=== PATIENT | male | born 1955 | race Caucasian/White ===

== ENCOUNTER 2018-04-20 10:23 | Inpatient (IN) | payer OTHER, MEDICAID ==
--- NOTE | 2018-04-20 10:49 | ED ---
General Adult HPI <Oh Kennedy - Last Filed: 04/20/18 14:38> - General Source: patient, RN notes reviewed Mode of arrival: ambulatory Limitations: no limitations <Pito Conroy - Last Filed: 04/20/18 14:45> - General Chief complaint: Urogenital Stated complaint: blood in urine Time Seen by Provider: 04/20/18 10:30 - History of Present Illness Initial comments: 62-year-old male presents to the emergency department for a chief complaint of dysuria 5 days. Patient states this started on . He states he has urinary urgency and sometimes does not like he can make it to the bathroom since . He states he is also going more frequently than normal. He states once he starts urinating he started to have pain during the end of his urination stream. Patient states he is small amount of blood in the urine as well. Patient states he has not been taking his water pills because of this. He does admit to feeling somewhat more short of breath. He denies chest pain. Patient has no other complaints at this time including shortness of breath, abdominal pain, nausea or vomiting, headache, or visual changes. (Pito Conroy) - Related Data Home Medications Medication Instructions Recorded Confirmed Allopurinol [Zyloprim] 300 mg PO QAM 05/12/17 04/20/18 Atenolol 100 mg PO QAM 05/12/17 04/20/18 Doxazosin Mesylate 1 mg PO HS 05/12/17 04/20/18 Furosemide [Lasix] 80 mg PO QAM 05/12/17 04/20/18 Levothyroxine Sodium [Levo-T] 300 mcg PO QAM 05/12/17 04/20/18 Simvastatin [Zocor] 40 mg PO HS 05/12/17 04/20/18 Spironolactone-Hctz 25-25Mg 1 tab PO QAM 05/12/17 04/20/18 [Aldactazide 25-25Mg] Amoxicillin 250 mg PO Q8H 04/20/18 04/20/18 Levothyroxine Sodium [Synthroid] 50 mcg PO DAILY 04/20/18 04/20/18 Tamsulosin HCl [Flomax] 0.4 mg PO DAILY 04/20/18 04/20/18 Allergies Allergy/AdvReac Type Severity Reaction Status Date / Time No Known Allergies Allergy Verified 04/20/18 11:23 Review of Systems ROS Other: All systems not noted in ROS Statement are negative. <Oh Kennedy - Last Filed: 04/20/18 14:38> ROS Other: All systems not noted in ROS Statement are negative. <Pito Conroy - Last Filed: 04/20/18 14:45> ROS Statement: Those systems with pertinent positive or pertinent negative responses have been documented in the HPI. Past Medical History Past Medical History: Hyperlipidemia, Hypertension, Sleep Apnea/CPAP/BIPAP, Thyroid Disorder History of Any Multi-Drug Resistant Organisms: None Reported Past Surgical History: Orthopedic Surgery Additional Past Surgical History / Comment(s): colonoscopy, had a pin in his elbow Past Anesthesia/Blood Transfusion Reactions: No Reported Reaction Past Psychological History: No Psychological Hx Reported Smoking Status: Never smoker - Past Family History Mother Family Medical History: Cancer <Pito Conroy P - Last Filed: 04/20/18 14:45> General Exam Limitations: no limitations General appearance: alert, in no apparent distress Head exam: Present: atraumatic, normocephalic, normal inspection Eye exam: Present: normal appearance, PERRL, EOMI. Absent: scleral icterus, conjunctival injection, periorbital swelling ENT exam: Present: normal exam, mucous membranes moist Neck exam: Present: normal inspection, full ROM. Absent: tenderness, meningismus, lymphadenopathy Respiratory exam: Present: normal lung sounds bilaterally. Absent: respiratory distress, wheezes, rales, rhonchi, stridor Cardiovascular Exam: Present: regular rate, normal rhythm, normal heart sounds. Absent: systolic murmur, diastolic murmur, rubs, gallop, clicks GI/Abdominal exam: Present: soft, normal bowel sounds. Absent: distended, tenderness, guarding, rebound, rigid Back exam: Absent: CVA tenderness (R), CVA tenderness (L) Neurological exam: Present: alert, oriented X3, CN II-XII intact <Pito Conroy P - Last Filed: 04/20/18 14:45> Vital Signs 04/20/18 04/20/18 10:25 11:42 Temperature 98.4 F Pulse Rate 69 61 Respiratory 18 18 Rate Blood Pressure 197/102 149/86 O2 Sat by Pulse 96 96 Oximetry EKG Findings - EKG Comments: EKG Findings:: EKG 11:26 shows atrial fibrillation with rate of 72, QRS duration 86, QTc 459, no evidence of ST elevation or depression. EKG 1136 atrial fibrillation, ventricular rate 70, QRS orthodoxy 84, QTc 464 <Pito Conroy - Last Filed: 04/20/18 14:45> Medical Decision Making - Lab Data Result diagrams: 04/20/18 11:10 04/20/18 11:10 <Oh Kennedy - Last Filed: 04/20/18 14:38> - Lab Data Result diagrams: 04/20/18 11:10 04/20/18 11:10 - EKG Data -: EKG Interpreted by Me (and Dr Kennedy) <Pito Conroy - Last Filed: 04/20/18 14:45> - Medical Decision Making Patient reevaluated by myself, Dr. Kennedy. Patient resting comfortably in bed. Patient does have some edema and some wheezing on lung sounds on exam. Patient updated on results and plan. Atrial fibrillation appears new. Case was discussed in detail with Dr. Anne, who will admit his patient. IV antibiotic 's will be started. I did review and agree with PA findings. This includes all diagnostic interpretations and treatment plan. (Oh Kennedy) 62-year-old male with a past medical history of hyperlipidemia, hypertension for a chief complaint of dysuria 5 days. Patient was started on amoxicillin 3 days ago without relief. Patient is also complaining of mild shortness of breath as he has not taken his 80 mg of daily Lasix for 5 days due to the pain with urination. Patient does not meet Sirs criteria. He is afebrile. He does have a positive urinary tract infection. He denies any significant flank pain. CMP and CBC are unremarkable. White count is within normal limits. Troponin is negative. EKGs do show an atrial fibrillation with a controlled rate of about 70. Patient is not anticoagulated and this is new onset A. fib. Patient will be admitted for outpatient treatment failure for urinary tract infection as well as new onset atrial fibrillation. He was started on heparin and given a dose of Lasix. Cardiology was consulted. (Pito Conroy) - Lab Data Lab Results 04/20/18 04/20/18 04/20/18 Range/Units 11:10 11:10 11:10 WBC 6.4 (3.8-10.6) k/uL RBC 4.08 L (4.30-5.90) m/uL Hgb 14.4 (13.0-17.5) gm/dL Hct 42.3 (39.0-53.0) % MCV 103.7 H (80.0-100.0) fL MCH 35.2 H (25.0-35.0) pg MCHC 33.9 (31.0-37.0) g/dL RDW 14.1 (11.5-15.5) % Plt Count 174 (150-450) k/uL Neutrophils % 73 % Lymphocytes % 14 % Monocytes % 9 % Eosinophils % 2 % Basophils % 0 % Neutrophils # 4.7 (1.3-7.7) k/uL Lymphocytes # 0.9 L (1.0-4.8) k/uL Monocytes # 0.6 (0-1.0) k/uL Eosinophils # 0.1 (0-0.7) k/uL Basophils # 0.0 (0-0.2) k/uL Macrocytosis Slight Sodium 139 (137-145) mmol/L Potassium 4.2 (3.5-5.1) mmol/L Chloride 104 (98-107) mmol/L Carbon Dioxide 28 (22-30) mmol/L Anion Gap 7 mmol/L BUN 15 (9-20) mg/dL Creatinine 0.76 (0.66-1.25) mg/dL Est GFR (CKD-EPI)AfAm >90 (>60 ml/min/1.73 sqM) Est GFR (CKD-EPI)NonAf >90 (>60 ml/min/1.73 sqM) Glucose 94 (74-99) mg/dL Calcium 8.5 (8.4-10.2) mg/dL Magnesium 1.8 (1.6-2.3) mg/dL Total Bilirubin 0.6 (0.2-1.3) mg/dL AST 26 (17-59) U/L ALT 34 (21-72) U/L Alkaline Phosphatase 49 (38-126) U/L Troponin I <0.012 (0.000-0.034) ng/mL NT-Pro-B Natriuret Pep pg/mL Total Protein 6.0 L (6.3-8.2) g/dL Albumin 3.2 L (3.5-5.0) g/dL Urine Color Urine Appearance (Clear) Urine pH (5.0-8.0) Ur Specific [place] (1.001-1.035) Urine Protein (Negative) Urine Glucose (UA) (Negative) Urine Ketones (Negative) Urine Blood (Negative) Urine Nitrite (Negative) Urine Bilirubin (Negative) Urine Urobilinogen (<2.0) mg/dL Ur Leukocyte Esterase (Negative) Urine RBC (0-5) /hpf Urine WBC (0-5) /hpf Urine WBC Clumps (None) /hpf Ur Squamous Epith Cells (0-4) /hpf Urine Bacteria (None) /hpf Urine Mucus (None) /hpf 04/20/18 04/20/18 Range/Units 11:10 12:05 WBC (3.8-10.6) k/uL RBC (4.30-5.90) m/uL Hgb (13.0-17.5) gm/dL Hct (39.0-53.0) % MCV (80.0-100.0) fL MCH (25.0-35.0) pg MCHC (31.0-37.0) g/dL RDW (11.5-15.5) % Plt Count (150-450) k/uL Neutrophils % % Lymphocytes % % Monocytes % % Eosinophils % % Basophils % % Neutrophils # (1.3-7.7) k/uL Lymphocytes # (1.0-4.8) k/uL Monocytes # (0-1.0) k/uL Eosinophils # (0-0.7) k/uL Basophils # (0-0.2) k/uL Macrocytosis Sodium (137-145) mmol/L Potassium (3.5-5.1) mmol/L Chloride (98-107) mmol/L Carbon Dioxide (22-30) mmol/L Anion Gap mmol/L BUN (9-20) mg/dL Creatinine (0.66-1.25) mg/dL Est GFR (CKD-EPI)AfAm (>60 ml/min/1.73 sqM) Est GFR (CKD-EPI)NonAf (>60 ml/min/1.73 sqM) Glucose (74-99) mg/dL Calcium (8.4-10.2) mg/dL Magnesium (1.6-2.3) mg/dL Total Bilirubin (0.2-1.3) mg/dL AST (17-59) U/L ALT (21-72) U/L Alkaline Phosphatase (38-126) U/L Troponin I (0.000-0.034) ng/mL NT-Pro-B Natriuret Pep 1210 pg/mL Total Protein (6.3-8.2) g/dL Albumin (3.5-5.0) g/dL Urine Color Yellow Urine Appearance Clear (Clear) Urine pH 7.5 (5.0-8.0) Ur Specific [place] 1.016 (1.001-1.035) Urine Protein 2+ H (Negative) Urine Glucose (UA) Negative (Negative) Urine Ketones Negative (Negative) Urine Blood Moderate H (Negative) Urine Nitrite Positive (Negative) Urine Bilirubin Negative (Negative) Urine Urobilinogen <2.0 (<2.0) mg/dL Ur Leukocyte Esterase Moderate H (Negative) Urine RBC 17 H (0-5) /hpf Urine WBC >182 H (0-5) /hpf Urine WBC Clumps Moderate H (None) /hpf Ur Squamous Epith Cells <1 (0-4) /hpf Urine Bacteria Occasional H (None) /hpf Urine Mucus Rare H (None) /hpf Disposition <Oh Kennedy - Last Filed: 04/20/18 14:38> Time of Disposition: 14:44 <Pito Conroy - Last Filed: 04/20/18 14:45> Clinical Impression: UTI (urinary tract infection), Failure of outpatient treatment, New onset atrial fibrillation Disposition: ADMITTED IP TO THIS [facility] Condition: Good Referrals: Ramone Anne MD [Primary Care Provider] - 1-2 days
[2018-04-20 11:30] LABS: Basophils % (A) 0 %; Eosinophils # (A) 0.1 k/uL (0-0.7); Eosinophils % (A) 2 %; HCT 42.3 % (39.0-53.0); HGB 14.4 gm/dL (13.0-17.5); Lymphocytes # (A) 0.9 k/uL (1.0-4.8); Lymphocytes % (A) 14 %; MCH 35.2 pg (25.0-35.0); MCHC 33.9 g/dL (31.0-37.0); MCV 103.7 fL (80.0-100.0); Macrocytosis Slight; Mean Platelet Volume 6.8; Monocytes # (A) 0.6 k/uL (0-1.0); Monocytes % (A) 9 %; Neutrophils # (A) 4.7 k/uL (1.3-7.7); Neutrophils % (A) 73 %; Platelet Count 174 k/uL (150-450); RBC 4.08 m/uL (4.30-5.90); RDW 14.1 % (11.5-15.5); WBC 6.4 k/uL (3.8-10.6)
[2018-04-20 11:37] LABS: ALT 34 U/L (21-72); AST 26 U/L (17-59); Albumin 3.2 g/dL (3.5-5.0); Alkaline Phosphatase 49 U/L (38-126); Anion Gap 7 mmol/L; Blood Urea Nitrogen 15 mg/dL (9-20); Calcium 8.5 mg/dL (8.4-10.2); Carbon Dioxide 28 mmol/L (22-30); Chloride 104 mmol/L (98-107); Glucose 94 mg/dL (74-99); Magnesium 1.8 mg/dL (1.6-2.3); Potassium 4.2 mmol/L (3.5-5.1); Sodium 139 mmol/L (137-145); Total Bilirubin 0.6 mg/dL (0.2-1.3)
--- NOTE | 2018-04-20 12:05 | XR ---
EXAMINATION TYPE: XR chest 2V DATE OF EXAM: 04/20/2018 COMPARISON: None HISTORY: 62-year-old male with chest pain TECHNIQUE: PA and lateral views FINDINGS: Heart borderline enlarged. Mild elongation thoracic aorta. Mild interstitial prominence. Strandy left basilar atelectasis. No sizable pleural effusion. IMPRESSION: Borderline cardiomegaly. Interstitial changes have a chronic appearance. Correlate to exclude mild pu lmonary vascular congestion.
[2018-04-20 12:48] LABS: Appearance,Urine Clear (Clear); Bacteria,Urine Occasional /hpf; Bilirubin,Urine Negative (Negative); Blood,Urine Moderate (Negative); Color,Urine Yellow; Glucose,Urine (UA) Negative (Negative); Ketones,Urine Negative (Negative); Leukocyte Esterase,Urine Moderate (Negative); Mucus,Urine Rare /hpf; Nitrite,Urine Positive (Negative); PH, Urine 7.5 (5.0-8.0); Protein,Urine 2+ (Negative); RBC,Urine 17 /hpf (0-5); Specific Gravity,Urine 1.016 (1.001-1.035); Squamous Epithelial Cell,Urine <1 /hpf (0-4); Urobilinogen,Urine <2.0 mg/dL (<2.0); WBC,Urine >182 /hpf (0-5)
[2018-04-20] MEDS ORDERED: cefTRIAXone 2,000 MG in SODIUM CHLORIDE 0.9% 100 ML IVPB STA (12:54)
[2018-04-20] MEDS ORDERED: HEPARIN SODIUM,PORCINE 5,000 UNIT/ML 1 ML VIAL IV ONE (14:29)
[2018-04-20] MEDS ORDERED: HEPARIN SOD,PORK IN 0.45% NACL 25,000 UNIT in 0.45% NACL 1 500ML.BAG IV SCH (14:30)
[2018-04-20] MEDS ORDERED: NALOXONE 0.4 MG/ML 1 ML VIAL IV PRN (14:31)
[2018-04-20] MEDS ORDERED: FUROSEMIDE 10 MG/ML 4 ML VIAL IV STA (14:39)
[2018-04-20 14:45] LABS: INR 1.1 (<1.2); Partial Thromboplastin Time 23.5 sec (22.0-30.0); Prothrombin Time 10.3 sec (9.0-12.0)
[2018-04-20] MEDS ORDERED: SODIUM CHLORIDE 0.9% 1,000 ML IV SCH (14:45)
[2018-04-20] MEDS ORDERED: HEPARIN SODIUM,PORCINE 5,000 UNIT/ML 1 ML VIAL IV PRN (22:03)
[2018-04-21 04:49] VITALS: RESP 18
--- NOTE | 2018-04-21 09:19 | P.CRDCN ---
History of Present Illness Consult date: 04/21/18 Requesting physician: Ramone Anne Consult reason: atrial fibrillation Chief complaint: Urinary frequency and dysuria History of present illness: This is a pleasant 62-year-old gentleman with history of hypertension , hyperlipidemia, sleep apnea, nonsmoker, nondiabetic, obesity, hypothyroidism, who presented to the hospital with symptoms of dysuria and urinary frequency. He was found to have a urinary tract infection and was initiated on antibiotics. EKG performed on arrival here showed atrial fibrillation with a controlled ventricular response. According to the patient, he had never been told in the past to have an irregular heartbeat. He does have a yearly physical performed with Dr. Cristina in his primary care doctor and states that he had an EKG performed in June of this year. Chest x-ray showed borderline cardiomegaly, interstitial changes, mild pulmonary vascular congestion. EKG showed atrial fibrillation with a controlled ventricular response and occasional PVC. White blood cell count 6.4, hemoglobin 14.4, platelet count 174. Sodium 139, potassium 4.2, BUN 15, creatinine 0.7. Troponin 0.012, BNP level 1210. At the time of my examination this morning, patient feels well, he states that his dysuria is improved. He denies any recent palpitations, no dizziness or lightheadedness. Mild occasional shortness of breath. Past Medical History Past Medical History: Hyperlipidemia, Hypertension, Sleep Apnea/CPAP/BIPAP, Thyroid Disorder History of Any Multi-Drug Resistant Organisms: None Reported Past Surgical History: Orthopedic Surgery Additional Past Surgical History / Comment(s): colonoscopy, had a pin in his elbow Past Anesthesia/Blood Transfusion Reactions: No Reported Reaction Additional Past Anesthesia/Blood Transfusion Reaction / Comment(s): "i've never had a blood transfusion" Smoking Status: Never smoker - Past Family History Mother Family Medical History: AFIB, Cancer Father Additional Family Medical History / Comment(s): ALS Medications and Allergies Home Medications Medication Instructions Recorded Confirmed Type Allopurinol [Zyloprim] 300 mg PO QAM 05/12/17 04/20/18 History Atenolol 100 mg PO QAM 05/12/17 04/20/18 History Doxazosin Mesylate 1 mg PO HS 05/12/17 04/20/18 History Furosemide [Lasix] 80 mg PO QAM 05/12/17 04/20/18 History Levothyroxine Sodium [Levo-T] 300 mcg PO QAM 05/12/17 04/20/18 History Simvastatin [Zocor] 40 mg PO HS 05/12/17 04/20/18 History Spironolactone-Hctz 25-25Mg 1 tab PO QAM 05/12/17 04/20/18 History [Aldactazide 25-25Mg] Amoxicillin 250 mg PO Q8H 04/20/18 04/20/18 History Levothyroxine Sodium [Synthroid] 50 mcg PO DAILY 04/20/18 04/20/18 History Tamsulosin HCl [Flomax] 0.4 mg PO DAILY 04/20/18 04/20/18 History Allergies Allergy/AdvReac Type Severity Reaction Status Date / Time No Known Allergies Allergy Verified 04/20/18 11:23 Physical Exam Vitals: Vital Signs Temp Pulse Pulse Resp BP BP Pulse Ox 04/21/18 07:42 96 04/21/18 04:00 98 F 65 18 166/90 96 04/21/18 03:24 20 04/20/18 23:37 97.8 F 61 20 160/91 94 L 04/20/18 19:38 97.9 F 66 20 132/77 93 L 04/20/18 18:03 64 18 04/20/18 17:55 98.2 F 64 18 150/106 93 L 04/20/18 17:29 69 18 125/94 95 04/20/18 11:42 61 18 149/86 96 04/20/18 10:25 98.4 F 69 18 197/102 96 Intake and Output 04/20/18 04/21/18 04/21/18 22:59 06:59 14:59 Intake Total 128.759 293.456 Balance 128.759 293.456 Intake: IV 80 Heparin Sod,Pork in 0.45% 80 NaCl 25,000 unit In 0.45 % NaCl 1 500ml.bag @ 5 UNITS/KG/HR 19.86 mls/hr IV .Q24H [facility] [place] Rx#: [id number] Intake, IV Titration 128.759 213.456 Amount Heparin Sod,Pork in 0.45% 128.759 213.456 NaCl 25,000 unit In 0.45 % NaCl 1 500ml.bag @ 5 UNITS/KG/HR 19.86 mls/hr IV .Q24H [facility] [place] Rx#: [id number] Other: Voiding Method Toilet Toilet # Voids 4 Weight 177.8 kg PHYSICAL EXAMINATION: GENERAL: 62-year-old gentleman in no acute distress at the time of my examination HEENT: Head is atraumatic, normocephalic. Pupils equal, round. Sclera anicteric. Conjunctiva are clear. Mucous membranes of the mouth are moist. Neck is supple. There is no elevated jugular venous pressure. No carotid bruit is heard. HEART EXAMINATION: S1 and S2 irregularly irregular CHEST EXAMINATION: Lungs are clear to auscultation and precussion. No chest wall tenderness is noted on palpation or with deep breathing. ABDOMEN: Soft, obese, nontender. Bowel sounds are heard. No organomegaly noted. EXTREMITIES: 2+ peripheral pulses with trace evidence of peripheral edema and no calf tenderness noted. Bilateral PÉREZ hose in place. NEUROLOGIC patient is awake, alert and oriented 3 . . Results 04/20/18 11:10 04/20/18 11:10 Cardiac Enzymes 04/20/18 04/20/18 Range/Units 11:10 11:10 AST 26 (17-59) U/L Troponin I <0.012 (0.000-0.034) ng/mL Coagulation 04/20/18 04/20/18 04/21/18 Range/Units 14:06 21:15 04:11 PT 10.3 (9.0-12.0) sec APTT 23.5 24.3 27.7 (22.0-30.0) sec CBC 04/20/18 Range/Units 11:10 WBC 6.4 (3.8-10.6) k/uL RBC 4.08 L (4.30-5.90) m/uL Hgb 14.4 (13.0-17.5) gm/dL Hct 42.3 (39.0-53.0) % Plt Count 174 (150-450) k/uL Comprehensive Metabolic Panel 04/20/18 Range/Units 11:10 Sodium 139 (137-145) mmol/L Potassium 4.2 (3.5-5.1) mmol/L Chloride 104 (98-107) mmol/L Carbon Dioxide 28 (22-30) mmol/L BUN 15 (9-20) mg/dL Creatinine 0.76 (0.66-1.25) mg/dL Glucose 94 (74-99) mg/dL Calcium 8.5 (8.4-10.2) mg/dL AST 26 (17-59) U/L ALT 34 (21-72) U/L Alkaline Phosphatase 49 (38-126) U/L Total Protein 6.0 L (6.3-8.2) g/dL Albumin 3.2 L (3.5-5.0) g/dL Current Medications Generic Name Dose Route Start Last Admin Trade Name Freq PRN Reason Stop Dose Admin Heparin Sodium (Porcine) 0 unit 04/20/18 22:03 04/20/18 22:13 Heparin IV 4,000 unit PER PROTOCOL PRN Administration Low PTT Protocol Heparin Sodium/Sodium Chloride 500 mls @ 19.86 mls/hr 04/20/18 14:30 05:04 25,000 unit/ Sodium Chloride IV 11 units/kg/hr .Q24H [facility] 43.7 mls/hr Titration Protocol 5 UNITS/KG/HR Sodium Chloride 1,000 mls @ 50 mls/hr 04/20/18 14:45 04/20/18 15:37 Saline 0.9% IV 50 mls/hr .Q20H [facility] Administration Ceftriaxone Sodium 1,000 mg/ 50 mls @ 100 mls/hr 04/21/18 00:00 04/20/18 22: 13 Sodium Chloride IVPB 100 mls/hr Q12H [facility] Administration Naloxone HCl 0.2 mg 04/20/18 14:31 Narcan IV Q2M PRN Opioid Reversal Intake and Output 04/20/18 04/21/18 04/21/18 22:59 06:59 14:59 Intake Total 128.759 293.456 Balance 128.759 293.456 Intake: IV 80 Heparin Sod,Pork in 0.45% 80 NaCl 25,000 unit In 0.45 % NaCl 1 500ml.bag @ 5 UNITS/KG/HR 19.86 mls/hr IV .Q24H [facility] Rx#: [id number] Intake, IV Titration 128.759 213.456 Amount Heparin Sod,Pork in 0.45% 128.759 213.456 NaCl 25,000 unit In 0.45 % NaCl 1 500ml.bag @ 5 UNITS/KG/HR 19.86 mls/hr IV .Q24H [facility] [place] Rx#: [id number] Other: Voiding Method Toilet Toilet # Voids 4 Weight 177.8 kg 04/20/18 11:10 04/20/18 11:10 EKG Interpretations (text) EKG shows atrial fibrillation with controlled ventricular response and occasional PVC. Assessment and Plan Plan: Assessment and plan #1 atrial fibrillation with controlled ventricular response, appears to be of new onset. Paroxysmal. #2 hypertension #3 UTI, on antibiotics #4 hyperlipidemia #5 obesity #6 sleep apnea #7 hypothyroidism #8 mild congestive cardiac failure, LV function unknown. Plan We will obtain an echocardiogram with Doppler study, check a TSH level. Patient has been educated regarding the need for anticoagulation for stroke prevention. We'll discontinue the IV heparin and start the patient on Eliquis. Patient was given one dose of IV Lasix. We will decrease IV fluids to KVO. DNP note has been reviewed, I agree with a documented findings and plan of care. Patient was seen and examined.
[2018-04-21] MEDS: APIXABAN 5 MG TAB PO SCH ×2 (09:56→20:23)
[2018-04-21] MEDS: SODIUM CHLORIDE 0.9% 500 ML 500 ML IV SCH (09:57)
[2018-04-21 12:00] LABS: Glucose,Whole Blood 324 mg/dL (75-99)
--- NOTE | 2018-04-21 14:46 | HP ---
HISTORY AND PHYSICAL CHIEF COMPLAINT: Inability to void and dysuria. HISTORY OF PRESENT ILLNESS: This is the first known admission for this 62-year-old white male who has a history of hypertension and obesity. He was in the office on 04/18 stating he could not urinate. He reported that his urine would "just shut off." He denied dysuria, fever, chills, etc. At that time, urine was obtained and he was set up for post void residual. However, he continued to have difficulty and came to the emergency room where he was admitted. He is found to have UTI. He has had no history of renal disease, obstructive uropathy, stones, etc. He has not passed any blood clots. REVIEW OF SYSTEMS: He has had no headaches, neurologic problems, difficulty with vision, hearing, shortness of breath, cough, hemoptysis, chest pain, palpitations, angina, infarctions, orthopnea, PND, abdominal pain, nausea, vomiting, hematemesis, melena, hematochezia, colitis, diverticulosis, diverticulitis, hemorrhoids, jaundice, hepatitis, cancers, hematuria, frequency, renal failure, etc, other than that already mentioned. Past medical history, family history, personal and social histories reveal he is not allergic to any medications. MEDICATIONS: 1. He is on atenolol 100 mg once a day. 2. Levothyroxine 0.3 mg a day. 3. Simvastatin 20 mg at bedtime. 4. Dyazide 25/25 once a day. 5. Furosemide 80 mg once a day. 6. Allopurinol 300 mg once a day. 7. Doxazosin 1 mg at bedtime. 8. Enalapril 20 mg twice a day. 9. Naprosyn 500 twice a day. 10.Vitamin D 50,000 units a month. 11.Aspirin 81 mg. 12.He uses CPAP machine for sleep apnea. Remainder of the history is unremarkable. He has never smoked. PHYSICAL EXAM: BMI is 51.6 with a weight of 438 pounds and a height of 6, 5-1/4. Blood pressure 128/78 with pulse of 74 and regular, respirations of 20 and he is afebrile. GENERAL: He appeared to be overweight and in no acute distress. Skin color was normal, skin is warm and dry. Lymph nodes are not enlarged. Head, ears, eyes, nose, mouth, and throat were normal. Neck veins are not distended. Thyroid is not enlarged and the chest is clear. Cardiac exam demonstrates sinus rhythm and no murmurs or extra sounds. The abdomen is protuberant, soft, and nontender. Extremities normal, neurologically he is intact. IMPRESSION: 1. Difficulty urinating. 2. Hematuria. 3. Hypertension. 4. Obesity. PLAN: 1. Bed rest. 2. IV fluids. 3. Urinary culture. 4. IV antibiotics. 5. A postvoid residual. 6. Looks as though he has atrial fibrillation and his EKGs in the office will be reviewed. MMODL / IJN: [id number] /
--- NOTE | 2018-04-21 14:46 | PN ---
PROGRESS NOTE CHIEF COMPLAINT: Difficulty urinating and hematuria with atrial fibrillation. HISTORY OF PRESENT ILLNESS: This gentleman is doing well. He has had no fever, chills, pain, etc. He is urinating. He has had no chest pain, shortness of breath, etc. He is in atrial fibrillation. His EKGs in the office was reviewed and he was in sinus rhythm until July of this year where he had an EKG which demonstrated some P waves, but then some beats and appeared he was in atrial fibrillation. PHYSICAL EXAM: Chest is clear. Cardiac exam is normal. Abdomen is soft, nontender. IMPRESSION: 1. Difficulty urinating. 2. Urinary tract infection. 3. Rule out obstructive uropathy. 4. Hypertension. 5. Atrial fibrillation. PLAN: Continue workup and order for both postvoid residual and PSA. MMODL / IJN: [id number] /
[2018-04-21] MEDS: SPIRONOLACTONE-HCTZ 25-25MG 1 EACH TAB PO SCH (20:46)
[2018-04-21] MEDS ORDERED: DOXAZOSIN 1 MG TAB PO SCH (21:00)
[2018-04-21] MEDS ORDERED: ATORVASTATIN 20 MG TAB PO SCH (21:00)
[2018-04-21] MEDS: ATENOLOL 50 MG TAB PO SCH (21:27)
[2018-04-21] MEDS: AMOXICILLIN 250 MG CAP PO SCH (21:35)
[2018-04-22] MEDS ORDERED: LEVOTHYROXINE 50 MCG TAB PO SCH (06:30)
[2018-04-22] MEDS ORDERED: LEVOTHYROXINE 100 MCG TAB PO SCH (06:30)
[2018-04-22 08:44] VITALS: TEMP 98.2
[2018-04-22] MEDS ORDERED: TAMSULOSIN 0.4 MG CAP.ER.24H PO SCH (09:00)
[2018-04-22] MEDS ORDERED: FUROSEMIDE 80 MG TAB PO SCH (09:00)
[2018-04-22] MEDS ORDERED: ALLOPURINOL 300 MG TAB PO SCH (09:00)
[2018-04-22] MEDS ORDERED: LISINOPRIL 20 MG TAB PO SCH (10:00)
[2018-04-22] MEDS: AMOXICILLIN 250 MG CAP PO SCH (10:24)
[2018-04-22] MEDS: ATENOLOL 50 MG TAB PO SCH (10:24)
[2018-04-22] MEDS: APIXABAN 5 MG TAB PO SCH (10:24)
[2018-04-22] MEDS: SPIRONOLACTONE-HCTZ 25-25MG 1 EACH TAB PO SCH (10:25)
--- NOTE | 2018-04-22 12:29 | P.PN ---
Subjective Progress Note Date: 04/22/18 This is a pleasant 62-year-old gentleman with history of hypertension , hyperlipidemia, sleep apnea, nonsmoker, nondiabetic, obesity, hypothyroidism, who presented to the hospital with symptoms of dysuria and urinary frequency. He was found to have a urinary tract infection and was initiated on antibiotics. EKG performed on arrival here showed atrial fibrillation with a controlled ventricular response. According to the patient, he had never been told in the past to have an irregular heartbeat. He does have a yearly physical performed with Dr. Cristina in his primary care doctor and states that he had an EKG performed in June of this year. Chest x-ray showed borderline cardiomegaly, interstitial changes, mild pulmonary vascular congestion. EKG showed atrial fibrillation with a controlled ventricular response and occasional PVC. White blood cell count 6.4, hemoglobin 14.4, platelet count 174. Sodium 139, potassium 4.2, BUN 15, creatinine 0.7. Troponin 0.012, BNP level 1210. At the time of my examination this morning, patient feels well, he states that his dysuria is improved. He denies any recent palpitations, no dizziness or lightheadedness. Mild occasional shortness of breath. 04/22/2018 Patient was seen and examined this morning, continues to be in atrial fibrillation rate under adequate control. He is anticoagulated. He denies any further dysuria. Echocardiogram with Doppler study was reviewed and revealed a normal left ventricular systolic function. Blood pressure this morning 155/80. Heart rate in the low 50s. Objective - Vital Signs Vital signs: Vital Signs Temp 98.2 F 04/22/18 08:40 Pulse 48 L 04/22/18 08:40 Resp 18 04/22/18 08:40 BP 168/94 04/22/18 08:40 Pulse Ox 97 04/22/18 08:40 Intake & Output 04/21/18 04/22/18 04/22/18 18:59 06:59 18:59 Intake Total 462 240 Balance 462 240 Weight 198.3 kg Intake: Oral 462 240 Other: Voiding Method Toilet Toilet Toilet # Voids 1 2 1 - Exam PHYSICAL EXAMINATION: GENERAL: 62-year-old gentleman in no acute distress at the time of my examination HEENT: Head is atraumatic, normocephalic. Pupils equal, round. Sclera anicteric. Conjunctiva are clear. Mucous membranes of the mouth are moist. Neck is supple. There is no elevated jugular venous pressure. No carotid bruit is heard. HEART EXAMINATION: S1 and S2 irregularly irregular CHEST EXAMINATION: Lungs are clear to auscultation and precussion. No chest wall tenderness is noted on palpation or with deep breathing. ABDOMEN: Soft, obese, nontender. Bowel sounds are heard. No organomegaly noted. EXTREMITIES: 2+ peripheral pulses with trace evidence of peripheral edema and no calf tenderness noted. Bilateral PÉREZ hose in place. NEUROLOGIC patient is awake, alert and oriented 3 . - Labs CBC & Chem 7: 04/20/18 11:10 04/20/18 11:10 Labs: Microbiology - Last 24 Hours (Table) 04/20/18 12:05 Urine Culture - Final Urine,Voided Escherichia coli 04/20/18 11:10 Blood Culture - Preliminary Blood No Growth after 24 hours Assessment and Plan Plan: Assessment and plan #1 atrial fibrillation with controlled ventricular response, appears to be of new onset. Paroxysmal. #2 hypertension #3 UTI, on antibiotics #4 hyperlipidemia #5 obesity #6 sleep apnea #7 hypothyroidism #8 mild congestive cardiac failure, LV function unknown. Plan From cardiology's perspective, patient may be able to be discharged home today. We will continue current anticoagulation as well as beta david. We will resume his ANKIT inhibitor which she was taking at home previously for hypertension. Follow-up appointment in the office post discharge. DNP note has been reviewed, I agree with a documented findings and plan of care. Patient was seen and examined.
[2018-04-22] MEDS: SODIUM CHLORIDE 0.9% 500 ML 500 ML IV SCH (13:09)
--- NOTE | 2018-04-22 13:21 | ECHOF ---
Referral Reason:afib MEASUREMENTS -------- HEIGHT: 198.1 cm WEIGHT: 177.4 kg BP: 166/90 RVIDd: 4.0 cm (< 3.3) IVSd: 1.5 cm (0.6 - 1.1) LVIDd: 5.7 cm (3.9 - 5.3) LVPWd: 1.5 cm (0.6 - 1.1) IVSs: 1.5 cm LVIDs: 4.4 cm LVPWs: 1.5 cm LAESV Index (A-L): 69.67 ml/m Ao Diam: 3.6 cm (2.0 - 3.7) AV Cusp: 2.1 cm (1.5 - 2.6) LA Diam: 4.8 cm (2.7 - 3.8) EPSS: 0.8 cm MV E Pankaj: 1.18 m/s MV DecT: 211 ms MV A Pankaj: 0.00 m/s MV E/A Ratio: 326.85 RAP: 5.00 mmHg RVSP: 39.17 mmHg MV EF SLOPE: 116.20 mm/s (70 - 150) MV EXCURSION: 2.12 cm (> 18.000) FINDINGS -------- Atrial fibrillation. This was a technically adequate study. The left ventricular size is normal. There is moderate concentric left ventricular hypertrophy. O verall left ventricular systolic function is low-normal with, an EF between 50 - 55 %. The right ventricle is moderately enlarged. LA is severely dilated >40 ml/m2 The right atrium is markedly enlarged. Aortic valve is trileaflet and is mildly thickened. There is no evidence of aortic regurgitation. There is no evidence of aortic stenosis. The mitral valve leaflets are mildly thickened. Rzlc-oe-ewzgfnuw mitral regurgitation is present. Ojvj-zv-kcjqixoz tricuspid regurgitation present. There is mild pulmonary hypertension. The right ventricular systolic pressure, as measured by Doppler, is 39.17mmHg. Trace/mild (physiologic) pulmonic regurgitation. The aortic root size is normal. IVC Not well visulized. There is no pericardial effusion. CONCLUSIONS -------- 1. Atrial fibrillation. 2. This was a technically adequate study. 3. The left ventricular size is normal. 4. There is moderate concentric left ventricular hypertrophy. 5. Overall left ventricular systolic function is low-normal with, an EF between 50 - 55 %. 6. The right ventricle is moderately enlarged. 7. LA is severely dilated >40 ml/m2 8. The right atrium is markedly enlarged. 9. Aortic valve is trileaflet and is mildly thickened. 10. The mitral valve leaflets are mildly thickened. 11. Ccei-no-ybwlpbdt mitral regurgitation is present. 12. Rktq-tb-rswbuntj tricuspid regurgitation present. 13. There is mild pulmonary hypertension. 14. The right ventricular systolic pressure, as measured by Doppler, is 39.17mmHg. 15. Trace/mild (physiologic) pulmonic regurgitation. 16. The aortic root size is normal. 17. IVC Not well visulized. 18. There is no pericardial effusion. ANALYTICS ASSOCIATE: Renato English RDCS
[2018-04-22 13:22] VITALS: BP 149/92; PULSE 50
--- NOTE | 2018-04-25 10:29 | DS ---
DISCHARGE SUMMARY CHIEF COMPLAINT: Urinary retention. HISTORY OF PRESENT ILLNESS AND PHYSICAL EXAM: Details of this man's history and physical can be found in the initial workup. LABORATORY STUDIES: While he was in the hospital he had laboratory studies, details of which can be found in the laboratory section of his chart. COURSE IN THE HOSPITAL: After admission, he was placed on bedrest, started on intravenous fluids and treated for his urinary tract infection. He was also found to be in atrial fibrillation and he was seen by Cardiology. He was started on anticoagulation. He is doing well and urinating freely and it was felt that his urinary symptoms were largely due to infection. It was felt that he could be discharged home and be followed up in the office in several days. He will be maintained on antibiotics and will go home on apixaban . FINAL DIAGNOSES: 1. Urinary tract infection. 2. Urinary retention. 3. Atrial fibrillation. 4. Hypertension. OPERATIONS: None. CONSULTATIONS: Cardiology, He is improved. MMANAISL / SHARITAN: [id number] /
== END 2018-04-22 15:00 | disposition home or self-care (01) | DRG 690 ==
LOC: EC 10:23 → 3SCARD 14:39
PROVIDERS: ADMIT Family Medicine; ATTEND Family Medicine
DX: N39.0 Urinary tract infection, site not specified (principal); Z68.43 Body mass index [BMI] 50.0-59.9, adult; E03.9 Hypothyroidism, unspecified; E66.9 Obesity, unspecified; E78.5 Hyperlipidemia, unspecified; G47.30 Sleep apnea, unspecified; I11.0 Hypertensive heart disease with heart failure; I48.0 Paroxysmal atrial fibrillation; I49.3 Ventricular premature depolarization; I50.9 Heart failure, unspecified; R33.9 Retention of urine, unspecified; Z79.890 Hormone replacement therapy; Z79.899 Other long term (current) drug therapy; Z79.82 Long term (current) use of aspirin; R31.9 Hematuria, unspecified; Z80.9 Family history of malignant neoplasm, unspecified; Z82.49 Family history of ischemic heart disease and other diseases of the circulatory system; Z82.0 Family history of epilepsy and other diseases of the nervous system
CPT/HCPCS: 36415; 51798; 71046; 80053; 81001; 83735; 83880; 84443; 84484; 85025; 85610; 85730; 87040; 87077; 87086; 87186; 93005; 93306; 94760; 96365; 96366; 96367; 96375; 96376; 99284

== ENCOUNTER → 2018-06-10 | Outpatient (CLI) | payer OTHER, MEDICAID ==
[2018-06-10 10:52] LABS: Anion Gap 6 mmol/L; Blood Urea Nitrogen 23 mg/dL (9-20); Carbon Dioxide 31 mmol/L (22-30); Chloride 101 mmol/L (98-107); Potassium 4.1 mmol/L (3.5-5.1); Sodium 138 mmol/L (137-145)
[2018-06-10 11:01] LABS: HCT 39.9 % (39.0-53.0); HGB 13.3 gm/dL (13.0-17.5); MCH 33.8 pg (25.0-35.0); MCHC 33.3 g/dL (31.0-37.0); MCV 101.7 fL (80.0-100.0); Macrocytosis Slight; Mean Platelet Volume 7.6; Platelet Count 140 k/uL (150-450); RBC 3.93 m/uL (4.30-5.90); RDW 14.5 % (11.5-15.5)
== END | disposition home or self-care (01) ==
LOC: LABPAT 10:27
PROVIDERS: ATTEND Internal Medicine Cardiovascular Disease
DX: Z01.812 Encounter for preprocedural laboratory examination (principal); I48.1 Persistent atrial fibrillation
CPT/HCPCS: 80051; 82565; 84520; 85027

== ENCOUNTER → 2018-06-17 | Day surgery (SDC) | payer OTHER, MEDICAID ==
[2018-06-15 15:44] VITALS: BMI 49.6
[~2018-06-17] MED LIST: ALLOPURINOL 300 MG TAB PO SCH; FUROSEMIDE 40 MG TAB PO SCH; LACTATED RINGERS 1,000 ML IV SCH; LEVOTHYROXINE SODIUM 350 MCG PO SCH; LIDOCAINE 1% INJ 10MG/ML (20 ML MDV) ONE; MINOXIDIL 10 MG TAB PO SCH; NON-FORMULARY DRUG (Enalapril 20 MG) PO SCH; PROPOFOL 10 MG/ML 20 ML VIAL IV ONE; RIVAROXABAN 20 MG TAB PO SCH; SODIUM CHLORIDE 0.9% 1,000 ML IV SCH; SODIUM CHLORIDE 0.9% 500 ML 500 ML IV ONE; SPIRONOLACTONE-HCTZ 25-25MG 1 EACH TAB PO SCH; TAMSULOSIN 0.4 MG CAP.ER.24H PO SCH
[2018-06-17 11:14] VITALS: TEMP 97.9
[2018-06-17] MEDS: BENZOCAINE SPRAY 1 CAN TOPICAL ONE ×2 (11:46→11:48)
--- NOTE | 2018-06-17 12:58 | ECHOT ---
TRANSESOPHAGEAL ECHOCARDIOGRAM TRANSESOPHAGEAL ECHO SECONDARY TO CARDIOVERSION: INDICATION: Chronic atrial fibrillation. PROCEDURE NOTE: After obtaining informed consent, transesophageal echocardiogram was performed in left lateral position using an Omni plane probe. The patient was anesthetized by the behavior management specialist. Following initial intubation and after obtaining some of the images, we had to pull the tube out became he became hypoxic. Patient was bagged and we reintubated him again. The procedure was completed without any problems. FINDINGS: 1. There is no intracardiac thrombus within the left atrial appendage, left atrium, right atrium, right ventricular or left ventricle. 2. Left ventricle has normal size and systolic function. 3. Right atrium and right ventricle appear enlarged. 4. Left atrium appears mildly enlarged. 5. Interatrial septum, there is no evidence of pelt-tq-syawd shunt by color-flow Doppler or hesge-ho-xfuk shunt by agitated saline contrast study. 6. Mitral valve is anatomically normal. There is mild central mitral regurgitation noted. Tricuspid valve shows moderate tricuspid regurgitation. Aortic valve is a 3- leaflet valve. There is no evidence of aortic stenosis or regurgitation. CONCLUSION: 1. No intracardiac thrombus. Enlarged right atrium and right ventricle. 2. Mild mitral regurgitation. CARDIOVERSION NOTE: INDICATION: Chronic atrial fibrillation. Patient underwent cardioversion after making sure that there is no intracardiac thrombus within the transesophageal echo and adequately anticoagulating with Xarelto. Patient was anesthetized by the behavior management specialist. He initially received 300 joules of synchronized DC current, remained in AFib. We did a second cardioversion at 360 joules, following which he converted to sinus rhythm. On discharge, patient will continue the Xarelto, but I am going to hold the atenolol as he may become bradycardic. He will follow up with my associate, Dr. Marya Aponte. MMODL / IJN: [id number] /
[2018-06-17 13:17] VITALS: RESP 18
[2018-06-17 13:18] VITALS: BP 110/60
[2018-06-17 13:33] VITALS: PULSE 52
== END ==
LOC: CATHCVL 10:23
PROVIDERS: ATTEND Internal Medicine Cardiovascular Disease
DX: I48.2 Chronic atrial fibrillation (principal); I34.0 Nonrheumatic mitral (valve) insufficiency; I11.9 Hypertensive heart disease without heart failure; R00.1 Bradycardia, unspecified; I44.0 Atrioventricular block, first degree; I45.10 Unspecified right bundle-branch block; E78.5 Hyperlipidemia, unspecified; G47.33 Obstructive sleep apnea (adult) (pediatric); E07.9 Disorder of thyroid, unspecified; Z79.01 Long term (current) use of anticoagulants; Z79.890 Hormone replacement therapy; Z79.899 Other long term (current) drug therapy
CPT/HCPCS: 93312; 93320; 93325; 92960; J2001; J2704; 93005

== ENCOUNTER 2018-11-13 20:05 | Inpatient (IN) | payer OTHER, MEDICAID ==
[2018-11-13] MEDS ORDERED: PIPERACILLIN-TAZOBACTAM 3.375 GM in SODIUM CHLORIDE 0.9% 100 ML IVPB STA (20:32)
[2018-11-13 21:25] LABS: Basophils % (A) 0 %; Eosinophils % (A) 1 %; HCT 35.3 % (39.0-53.0); HGB 11.3 gm/dL (13.0-17.5); Lymphocytes # (A) 0.9 k/uL (1.0-4.8); Lymphocytes % (A) 11 %; MCH 34.2 pg (25.0-35.0); MCV 107.1 fL (80.0-100.0); Macrocytosis Moderate; Mean Platelet Volume 7.6; Monocytes # (A) 0.4 k/uL (0-1.0); Monocytes % (A) 4 %; Neutrophils # (A) 6.8 k/uL (1.3-7.7); Neutrophils % (A) 81 %; Platelet Count 183 k/uL (150-450); RDW 14.7 % (11.5-15.5); WBC 8.4 k/uL (3.8-10.6)
[2018-11-13 21:34] LABS: Calcium 8.1 mg/dL (8.4-10.2); Potassium 4.1 mmol/L (3.5-5.1); Total Bilirubin 1.2 mg/dL (0.2-1.3); Total Protein 5.9 g/dL (6.3-8.2)
[2018-11-13] MEDS ORDERED: MORPHINE SULFATE 4 MG/ML SYRINGE IV PRN (22:56)
[2018-11-13] MEDS ORDERED: ONDANSETRON 4 MG/2 ML VIAL IVP PRN (22:56)
[2018-11-13] MEDS ORDERED: NALOXONE 0.4 MG/ML 1 ML VIAL IV PRN (22:56)
[2018-11-13] MEDS ORDERED: SODIUM CHLORIDE 0.9% 1,000 ML IV SCH ×2 (23:00→23:45)
--- NOTE | 2018-11-13 23:01 | ED ---
Abdominal Pain HPI - General Source: patient Mode of arrival: ambulatory Limitations: no limitations <Lorraine Chen - Last Filed: 11/14/18 00:46> <Jennifer Richey - Last Filed: 11/14/18 22:21> - General Chief Complaint: Abdominal Pain Stated Complaint: Gall Bladder Time Seen by Provider: 11/13/18 20:29 - History of Present Illness Initial Comments: 63-year-old male presenting today for chief complaint of right upper quadrant abdominal pain. x 4 days. Patient states since April of 2018 he's had on-and-off and upper quadrant abdominal pain mostly after meals. He states when he went to the hospital to be evaluated for right upper quadrant pain he was found of atrial fibrillation and did not have the abdominal pain addressed. He states that he has good days and bad days for the past 8 months. He states that for the past 4 days he's had constant pain he states he has had chills. He states he visited his primary care provider today who ordered an outpatient CT of the abdomen. He states he was called with the results stating he had acute cholecystitis and was to presents emergency department for further evaluation. Patient states he still has a right upper quadrant abdominal pain that radiates to the right shoulder blade. He denies chest pa in, SOB, LE edema, vomiting or diarrhea. Normal BM today. Remaining ROS (-) Upon arrival pt BP on lower aspect of normal, afebrile. Patient does not appearing in acute distress. Pt on xarleto. (Lorraine Chen) - Related Data Home Medications Medication Instructions Recorded Confirmed Allopurinol [Zyloprim] 300 mg PO DAILY 05/12/17 11/13/18 Furosemide [Lasix] 40 mg PO BID 05/12/17 11/13/18 Levothyroxine Sodium [Levo-T] 300 mcg PO QAM 05/12/17 11/13/18 Spironolactone-Hctz 25-25Mg 1 tab PO DAILY 05/12/17 11/13/18 [Aldactazide 25-25 MG] Tamsulosin HCl [Flomax] 0.4 mg PO DAILY 04/20/18 11/13/18 Enalapril [Vasotec] 20 mg PO BID 04/22/18 11/13/18 Minoxidil 10 mg PO DAILY 04/22/18 11/13/18 Rivaroxaban [Xarelto] 20 mg PO DAILY 06/15/18 11/13/18 Atenolol 100 mg PO DAILY 11/13/18 11/13/18 Flecainide [Tambocor] 50 mg PO Q12HR 11/13/18 11/13/18 Levothyroxine Sodium [Synthroid] 50 mcg PO DAILY 11/13/18 11/13/18 Previous Rx's Medication Instructions Recorded Atorvastatin [Lipitor] 40 mg PO DAILY #30 tab 06/17/18 Allergies Allergy/AdvReac Type Severity Reaction Status Date / Time No Known Allergies Allergy Verified 11/13/18 21:41 Review of Systems ROS Other: All systems not noted in ROS Statement are negative. <Lorraine Chen - Last Filed: 11/14/18 00:46> ROS Other: All systems not noted in ROS Statement are negative. <Jennifer Richey - Last Filed: 11/14/18 22:21> ROS Statement: Those systems with pertinent positive or pertinent negative responses have been documented in the HPI. Past Medical History Past Medical History: Hyperlipidemia, Hypertension, Sleep Apnea/CPAP/BIPAP, Thyroid Disorder Additional Past Medical History / Comment(s): recent tx of bladder infection and recent dx afib, uses cpap History of Any Multi-Drug Resistant Organisms: None Reported Past Surgical History: Orthopedic Surgery Additional Past Surgical History / Comment(s): colonoscopy, had a pin in his elbow Past Anesthesia/Blood Transfusion Reactions: No Reported Reaction Additional Past Anesthesia/Blood Transfusion Reaction / Comment(s): "i've never had a blood transfusion" Past Psychological History: No Psychological Hx Reported Smoking Status: Never smoker Past Alcohol Use History: None Reported Past Drug Use History: None Reported - Past Family History Mother Family Medical History: AFIB, Cancer Father Additional Family Medical History / Comment(s): ALS <Lorraine Chen - Last Filed: 11/14/18 00:46> General Exam Limitations: no limitations <Lorraine Chen - Last Filed: 11/14/18 00:46> - General Exam Comments Initial Comments: General: The patient is awake and alert, in no distress, and does not appear acutely ill. Eye: Pupils are equal, round and reactive to light, extra-ocular movements are intact. No nystagmus. There is normal conjunctiva bilaterally. No signs of icterus. Ears, nose, mouth and throat: There are moist mucous membranes and no oral lesions. Neck: The neck is supple, there is no tenderness or JVD. Cardiovascular: There is a regular rate and rhythm. No murmur, rub or gallop is appreciated. Respiratory: Lungs are clear to auscultation, respirations are non-labored, breath sounds are equal. No wheezes, stridor, rales, or rhonchi. Gastrointestinal: Soft, non-distended, right upper quadrant tender to both light and deep palpation abdomen without masses or organomegaly noted. Positive Vance sign. There is no rebound or guarding present. Bowel sounds are unremarkable. Musculoskeletal: Normal ROM, no tenderness. Strength 5/5. Sensation intact. Radial pulses equal bilaterally 2+. Neurological: A&O x 3. CN II-XII intact, There are no obvious motor or sensory deficits. Coordination appears grossly intact. Speech is normal. Skin: Skin is warm and dry and no rashes or lesions are noted. Psychiatric: Cooperative, appropriate mood & affect, normal judgment. (Lorraine Chen) Course Vital Signs 11/13/18 11/13/18 20:17 23:44 Temperature 98.3 F Pulse Rate 65 69 Respiratory 20 16 Rate Blood Pressure 95/49 103/67 O2 Sat by Pulse 94 L 96 Oximetry Medical Decision Making - Lab Data Result diagrams: 11/13/18 21:05 11/13/18 21:05 <Lorraine Chen - Last Filed: 11/14/18 00:46> - Lab Data Result diagrams: 11/14/18 08:05 11/14/18 08:05 <Jennifer Richey - Last Filed: 11/14/18 22:21> - Medical Decision Making 63-year-old male presenting for abnormal CT reading. Ultrasound confirmed cholecystitis. Patient has no significant leukocytosis. Patient has history of hypertension atrial fibrillation on xarelto, patient denies any history of kidney disease. Patient creatinine significantly increased from baseline. Appears to have WILBERT. Patient states he has not been eating and drinking as much secondary to the pain. Possibly prerenal. Patient given IVF in ER. Patient was placed on Zosyn. Surgery was contacted after ultrasound was performed. Dr. Richey spoke with reimbursement liaison surgeon Dr. Chapman who accepted consult, admission to [facility]. No further orders at this time. Dr. Richey attending provider did evaluate patient in person agreeable care plan as well as impression. Patient was transferred to floor in stable condition appearing well. Results were discussed with patient including WILBERT (Lorraine Chen) I personally saw and evaluated the patient, reviewed the patient's labs as well as imaging studies. Patient care was discussed with patient's primary care provider Dr. Anne who and evaluated the patient office earlier today, he agrees with plan for admission and consult to general surgery. Patient care was discussed with general surgeon Dr. Chapman he will evaluate the patient in the morning, agrees with plan for antibiotics and fluid resuscitation, nothing by mouth status. (Jennifer Richey) - Lab Data Lab Results 11/13/18 11/13/18 11/13/18 Range/Units 21:00 21:05 21:05 WBC 8.4 (3.8-10.6) k/uL RBC 3.30 L (4.30-5.90) m/uL Hgb 11.3 L (13.0-17.5) gm/dL Hct 35.3 L (39.0-53.0) % MCV 107.1 H (80.0-100.0) fL MCH 34.2 (25.0-35.0) pg MCHC 32.0 (31.0-37.0) g/dL RDW 14.7 (11.5-15.5) % Plt Count 183 (150-450) k/uL Neutrophils % 81 % Lymphocytes % 11 % Monocytes % 4 % Eosinophils % 1 % Basophils % 0 % Neutrophils # 6.8 (1.3-7.7) k/uL Lymphocytes # 0.9 L (1.0-4.8) k/uL Monocytes # 0.4 (0-1.0) k/uL Eosinophils # 0.0 (0-0.7) k/uL Basophils # 0.0 (0-0.2) k/uL Macrocytosis Moderate Sodium 132 L (137-145) mmol/L Potassium 4.1 (3.5-5.1) mmol/L Chloride 99 (98-107) mmol/L Carbon Dioxide 21 L (22-30) mmol/L Anion Gap 12 mmol/L BUN 76 H (9-20) mg/dL Creatinine 2.64 H (0.66-1.25) mg/dL Est GFR (CKD-EPI)AfAm 29 (>60 ml/min/1.73 sqM) Est GFR (CKD-EPI)NonAf 25 (>60 ml/min/1.73 sqM) Glucose 103 H (74-99) mg/dL Plasma Lactic Acid Sourav (0.7-2.0) mmol/L Calcium 8.1 L (8.4-10.2) mg/dL Total Bilirubin 1.2 (0.2-1.3) mg/dL AST 52 (17-59) U/L ALT 37 (21-72) U/L Alkaline Phosphatase 72 (38-126) U/L Total Protein 5.9 L (6.3-8.2) g/dL Albumin 3.0 L (3.5-5.0) g/dL Lipase 163 (23-300) U/L Urine Color Yellow Urine Appearance Clear (Clear) Urine pH 5.0 (5.0-8.0) Ur Specific [place] 1.031 (1.001-1.035) Urine Protein Negative (Negative) Urine Glucose (UA) Negative (Negative) Urine Ketones Negative (Negative) Urine Blood Negative (Negative) Urine Nitrite Negative (Negative) Urine Bilirubin Negative (Negative) Urine Urobilinogen <2.0 (<2.0) mg/dL Ur Leukocyte Esterase Negative (Negative) 11/13/18 Range/Units 21:05 WBC (3.8-10.6) k/uL RBC (4.30-5.90) m/uL Hgb (13.0-17.5) gm/dL Hct (39.0-53.0) % MCV (80.0-100.0) fL MCH (25.0-35.0) pg MCHC (31.0-37.0) g/dL RDW (11.5-15.5) % Plt Count (150-450) k/uL Neutrophils % % Lymphocytes % % Monocytes % % Eosinophils % % Basophils % % Neutrophils # (1.3-7.7) k/uL Lymphocytes # (1.0-4.8) k/uL Monocytes # (0-1.0) k/uL Eosinophils # (0-0.7) k/uL Basophils # (0-0.2) k/uL Macrocytosis Sodium (137-145) mmol/L Potassium (3.5-5.1) mmol/L Chloride (98-107) mmol/L Carbon Dioxide (22-30) mmol/L Anion Gap mmol/L BUN (9-20) mg/dL Creatinine (0.66-1.25) mg/dL Est GFR (CKD-EPI)AfAm (>60 ml/min/1.73 sqM) Est GFR (CKD-EPI)NonAf (>60 ml/min/1.73 sqM) Glucose (74-99) mg/dL Plasma Lactic Acid Sourav 1.5 (0.7-2.0) mmol/L Calcium (8.4-10.2) mg/dL Total Bilirubin (0.2-1.3) mg/dL AST (17-59) U/L ALT (21-72) U/L Alkaline Phosphatase (38-126) U/L Total Protein (6.3-8.2) g/dL Albumin (3.5-5.0) g/dL Lipase (23-300) U/L Urine Color Urine Appearance (Clear) Urine pH (5.0-8.0) Ur Specific [place] (1.001-1.035) Urine Protein (Negative) Urine Glucose (UA) (Negative) Urine Ketones (Negative) Urine Blood (Negative) Urine Nitrite (Negative) Urine Bilirubin (Negative) Urine Urobilinogen (<2.0) mg/dL Ur Leukocyte Esterase (Negative) Disposition Is patient prescribed a controlled substance at d/c from ED?: No Time of Disposition: 23:01 Decision to Admit Reason: Admit from EC Decision Date: 11/13/18 Decision Time: 23:01 <Lorraine Chen L - Last Filed: 11/14/18 00:46> <Jennifer Richey P - Last Filed: 11/14/18 22:21> Clinical Impression: WILBERT (acute kidney injury), Cholecystitis Disposition: ADMITTED IP TO THIS HOSP Condition: Stable
--- NOTE | 2018-11-13 23:01 | US ---
EXAM: US Abdomen Limited, Right Upper Quadrant CLINICAL HISTORY: ITS.REASON US Reason: Pain TECHNIQUE: Real-time ultrasound of the right upper quadrant with image documentation. COMPARISON: CT 11/13/18. FINDINGS: Liver: The liver measures 26 cm in length. Gallbladder: Distended gallbladder with sludge and gallbladder wall thickening, measuring 5 mm. No gallstones visualized. Questionable trace pericholecystic fluid. Positive sonographic Vance's sign. Common bile duct: The common bile duct measures 9 mm. Pancreas: Not well visualized. Right kidney: The right kidney measures 15.4 cm in length. No significant hydronephrosis. IMPRESSION: 1. Distended gallbladder with sludge. There is gallbladder wall thickening and questionable trace pericholecystic fluid. Dilated common bile duct. Positive sonographic Vance's sign. Correlate clinically for cholecystitis. 2. Hepatomegaly.
[2018-11-13] MEDS ORDERED: SODIUM CHLORIDE 0.9% 500 ML 500 ML IV ONE (23:33)
[2018-11-13] MEDS: SODIUM CHLORIDE 0.9% 1,000 ML IV SCH (23:50)
[2018-11-14 00:02] LABS: Appearance,Urine Clear (Clear); Bilirubin,Urine Negative (Negative); Blood,Urine Negative (Negative); Color,Urine Yellow; Glucose,Urine (UA) Negative (Negative); Ketones,Urine Negative (Negative); Leukocyte Esterase,Urine Negative (Negative); Nitrite,Urine Negative (Negative); Protein,Urine Negative (Negative); Specific Gravity,Urine 1.031 (1.001-1.035); Urobilinogen,Urine <2.0 mg/dL (<2.0)
[2018-11-14] MEDS: metroNIDAZOLE-NS PMX 500 MG in SALINE 1 100ML.BAG IVPB SCH ×4 (01:18→23:57)
[2018-11-14] MEDS: SODIUM CHLORIDE 0.9% 1,000 ML IV SCH ×4 (01:18→21:19)
[2018-11-14 08:37] LABS: HCT 33.2 % (39.0-53.0); HGB 10.6 gm/dL (13.0-17.5); MCHC 32.1 g/dL (31.0-37.0); MCV 105.9 fL (80.0-100.0); Macrocytosis Moderate; Mean Platelet Volume 7.4; Platelet Count 190 k/uL (150-450); RBC 3.13 m/uL (4.30-5.90); RDW 14.7 % (11.5-15.5); WBC 7.9 k/uL (3.8-10.6)
[2018-11-14 08:49] LABS: Calcium 8.1 mg/dL (8.4-10.2); Potassium 3.9 mmol/L (3.5-5.1)
--- NOTE | 2018-11-14 08:51 | P.GSCN ---
History of Present Illness Consult date: 11/14/18 Reason for Consult: Abdominal and back pain History of present illness: The patient is a 63 year old man who started having abdominal pain on Friday. It was in the upper abdomen and radiated through to the back. He had some episodes of nausea and vomiting. He hadn't been able to eat or drink much since that time. He had seen his primary care doctor as outpatient and a computed tomography scan was performed concerning for cholecystitis. He is admitted to the hospital. He had some chills on Friday but none since then. No fevers. No jaundice, acholic stool, blood in the stool. No previous "gallbladder attacks ". He will get some discomfort from time to time with eating. Review of Systems All systems: negative Past Medical History Past Medical History: Atrial Fibrillation, Hyperlipidemia, Hypertension, Sleep Apnea/CPAP/BIPAP, Thyroid Disorder Additional Past Medical History / Comment(s): UTI/bladder infection History of Any Multi-Drug Resistant Organisms: None Reported Past Surgical History: Orthopedic Surgery Additional Past Surgical History / Comment(s): colonoscopy, L elbow surgery Past Anesthesia/Blood Transfusion Reactions: No Reported Reaction Additional Past Anesthesia/Blood Transfusion Reaction / Comm: "i've never had a blood transfusion" Past Psychological History: No Psychological Hx Reported Smoking Status: Former smoker Past Alcohol Use History: None Reported Additional Past Alcohol Use History / Comment(s): now rare drink Past Drug Use History: None Reported - Past Family History Mother Family Medical History: AFIB, Cancer Father Additional Family Medical History / Comment(s): ALS Medications and Allergies Home Medications Medication Instructions Recorded Confirmed Type Allopurinol [Zyloprim] 300 mg PO DAILY 05/12/17 11/13/18 History Furosemide [Lasix] 40 mg PO BID 05/12/17 11/13/18 History Levothyroxine Sodium [Levo-T] 300 mcg PO QAM 05/12/17 11/13/18 History Spironolactone-Hctz 25-25Mg 1 tab PO DAILY 05/12/17 11/13/18 History [Aldactazide 25-25 MG] Tamsulosin HCl [Flomax] 0.4 mg PO DAILY 04/20/18 11/13/18 History Enalapril [Vasotec] 20 mg PO BID 04/22/18 11/13/18 History Minoxidil 10 mg PO DAILY 04/22/18 11/13/18 History Rivaroxaban [Xarelto] 20 mg PO DAILY 06/15/18 11/13/18 History Atorvastatin [Lipitor] 40 mg PO DAILY #30 tab 06/17/18 11/13/18 Rx Atenolol 100 mg PO DAILY 11/13/18 11/13/18 History Flecainide [Tambocor] 50 mg PO Q12HR 11/13/18 11/13/18 History Levothyroxine Sodium [Synthroid] 50 mcg PO DAILY 11/13/18 11/13/18 History Allergies Allergy/AdvReac Type Severity Reaction Status Date / Time No Known Allergies Allergy Verified 11/13/18 21:41 Surgical - Exam Osteopathic Statement: *. No significant issues noted on an osteopathic structural exam other than those noted in the History and Physical/Consult. Vital Signs Temp Pulse Resp BP Pulse Ox 98.3 F 65 20 95/49 94 L 11/13/18 20:17 11/13/18 20:17 11/13/18 20:17 11/13/18 20:17 11/13/18 20:17 - General well developed, well nourished, no distress - Eyes normal ocular movement - Neck trachea midline - Respiratory normal respiratory effort, clear to auscultation (Slightly diminished at the bases) - Cardiovascular Rhythm: regular - Abdomen Abdomen: soft, tender (Epigastric) Hernia: no umbilical Results - Labs 11/14/18 08:05 11/13/18 21:05 Abnormal Lab Results - Last 24 Hours (Table) 11/13/18 11/13/18 11/14/18 Range/Units 21:05 21:05 08:05 RBC 3.30 L 3.13 L (4.30-5.90) m/uL Hgb 11.3 L 10.6 L (13.0-17.5) gm/dL Hct 35.3 L 33.2 L (39.0-53.0) % MCV 107.1 H 105.9 H (80.0-100.0) fL Lymphocytes # 0.9 L (1.0-4.8) k/uL Sodium 132 L (137-145) mmol/L Carbon Dioxide 21 L (22-30) mmol/L BUN 76 H (9-20) mg/dL Creatinine 2.64 H (0.66-1.25) mg/dL Glucose 103 H (74-99) mg/dL Calcium 8.1 L (8.4-10.2) mg/dL Total Protein 5.9 L (6.3-8.2) g/dL Albumin 3.0 L (3.5-5.0) g/dL Diabetes panel 11/13/18 Range/Units 21:05 Sodium 132 L (137-145) mmol/L Potassium 4.1 (3.5-5.1) mmol/L Chloride 99 (98-107) mmol/L Carbon Dioxide 21 L (22-30) mmol/L BUN 76 H (9-20) mg/dL Creatinine 2.64 H (0.66-1.25) mg/dL Glucose 103 H (74-99) mg/dL Calcium 8.1 L (8.4-10.2) mg/dL AST 52 (17-59) U/L ALT 37 (21-72) U/L Alkaline Phosphatase 72 (38-126) U/L Total Protein 5.9 L (6.3-8.2) g/dL Albumin 3.0 L (3.5-5.0) g/dL Calcium panel 11/13/18 Range/Units 21:05 Calcium 8.1 L (8.4-10.2) mg/dL Albumin 3.0 L (3.5-5.0) g/dL Pituitary panel 11/13/18 Range/Units 21:05 Sodium 132 L (137-145) mmol/L Potassium 4.1 (3.5-5.1) mmol/L Chloride 99 (98-107) mmol/L Carbon Dioxide 21 L (22-30) mmol/L BUN 76 H (9-20) mg/dL Creatinine 2.64 H (0.66-1.25) mg/dL Glucose 103 H (74-99) mg/dL Calcium 8.1 L (8.4-10.2) mg/dL Adrenal panel 11/13/18 Range/Units 21:05 Sodium 132 L (137-145) mmol/L Potassium 4.1 (3.5-5.1) mmol/L Chloride 99 (98-107) mmol/L Carbon Dioxide 21 L (22-30) mmol/L BUN 76 H (9-20) mg/dL Creatinine 2.64 H (0.66-1.25) mg/dL Glucose 103 H (74-99) mg/dL Calcium 8.1 L (8.4-10.2) mg/dL Total Bilirubin 1.2 (0.2-1.3) mg/dL AST 52 (17-59) U/L ALT 37 (21-72) U/L Alkaline Phosphatase 72 (38-126) U/L Total Protein 5.9 L (6.3-8.2) g/dL Albumin 3.0 L (3.5-5.0) g/dL - Imaging CT scan - abdomen: report reviewed US - abdomen: report reviewed Assessment and Plan (1) Cholelithiasis Current Visit: Yes Status: Acute Code(s): K80.20 - CALCULUS OF GALLBLADDER W/O CHOLECYSTITIS W/O OBSTRUCTION SNOMED Code(s): 757587051 (2) Atrial fibrillation Current Visit: Yes Status: Acute Code(s): I48.91 - UNSPECIFIED ATRIAL FIBRILLATION SNOMED Code(s): 14657715 (3) Cholecystitis Current Visit: Yes Status: Acute Code(s): K81.9 - CHOLECYSTITIS, UNSPECIFIED SNOMED Code(s): 04530434 Plan: The patient continues to be symptomatic. I recommended laparoscopic cholecystectomy possible open. He has not taken his Xarelto in about 3 days. The procedure risks and complications were discussed. Questions were encouraged and answered. I'll do this for him today.
[2018-11-14] MEDS: PANTOPRAZOLE 40 MG/10 ML VIAL IVP SCH (09:40)
[2018-11-14] MEDS: FLECAINIDE 50 MG TAB PO SCH ×2 (11:37→22:06)
--- NOTE | 2018-11-14 15:59 | HP ---
HISTORY AND PHYSICAL CHIEF COMPLAINT: Abdominal pain. HISTORY OF PRESENT ILLNESS: This is another admission for this 63-year-old white male. He came to the office on the day of admission with a complaint of "not feeling well." He is a poor historian and is very vague. He stated that he had a loss of appetite and had some nausea and vomiting 3 or 4 days before coming in. He then began to have what he called "generalized" pain with lethargy. He tried to work, but had difficulty. He had no diarrhea, melena, hematemesis, acholic stools, dark urine, etc. When he came into the office he had a temperature of 99.1 and he was very tender over the upper abdomen. It was felt that there was a tender right upper quadrant mass. His urine was clear and a chest x-ray was obtained, but that was normal. He had complained of some posterior chest pain. It was decided that he should probably be sent to the emergency room for an urgent CT of the abdomen, and this was arranged. Report was delivered later, and it looked like he had acute cholecystitis. Patient was contacted to come in, and he was admitted. REVIEW OF SYSTEMS: He has had no other symptoms. He has had no syncope, chest pain, orthopnea, PND, history of pancreatitis or gallbladder disease, renal failure, dysuria, hematuria, etc. Past medical history, family history, and personal and social histories reveal he is NOT ALLERGIC TO ANY MEDICATION. He is on numerous medications, includin. Minoxidil 10 mg once a day. 2. Atorvastatin 40 at bedtime. 3. Levothyroxine 0.35 mg a day. 4. Dicyclomine 20 mg q.i.d. p.r.n. 5. Lomotil p.r.n. 6. Atenolol 100 mg once a day. 7. Aldactazide 25/25 once a day. 8. Allopurinol 300 mg once a day. 9. Lasix 40 mg once a day. 10.Enalapril 20 mg twice a day. 11.Flecainide 50 mg twice a day. 12.Tamsulosin 0.4 at bedtime. 13.Xarelto 20 mg once a day. 14.He uses CPAP for sleep apnea. He has a history of atrial fibrillation. He has never smoked. He drinks only occasionally. PHYSICAL EXAMINATION: Weight is 420 pounds with a BMI of 49.5. Temperature is 99.1, respirations 28, pulse 68, and blood pressure was 110/55. In general he appeared to be flushed and did not appear to feel well. Head, ears, eyes, nose, mouth and throat. There was no scleral icterus. Pupils were equally round and reactive. Neck veins could not be assessed. Chest was clear. Cardiac exam demonstrated what sounded like sinus rhythm. The abdomen was protuberant. He was very tender in the epigastric and right upper quadrant where there was a palpable large mass. Bowel sounds were heard. Extremities were normal. Neurologically he was intact. He is admitted to the hospital with diagnoses: 1. Acute cholecystitis. 2. Hypertension. 3. Atrial fibrillation. PLAN: 1. Bed rest. 2. IV fluids. 3. N.p.o. 4. General surgery consult. MMODL / IJN: [id number] /
--- NOTE | 2018-11-14 17:14 | PN ---
PROGRESS NOTE DATE OF SERVICE: 11/14/2018 CHIEF COMPLAINT: Acute cholecystitis. HISTORY OF PRESENT ILLNESS: This gentleman is still having quite a bit of discomfort. He has been seen by a surgeon, and it is planned that he will go for his surgery today. PHYSICAL EXAMINATION: Chest is clear. Cardiac exam is normal. He still has a tender mass in the epigastrium. Bowel sounds are present. Extremities are normal. Neurologically he is intact. IMPRESSION: 1. Acute cholecystitis. 2. Hypertension. 3. Atrial fibrillation. PLAN: Surgery today for cholecystectomy. MMODL / IJN: [id number] /
[2018-11-14] MEDS ORDERED: LIDOCAINE 4% (PF) 5 ML AMP IH ONE (17:59)
[2018-11-14] MEDS ORDERED: MIDAZOLAM 2 MG/2 ML VIAL ONE (18:38)
[2018-11-14] MEDS ORDERED: DEXAMETHASONE SOD PHOS (MDV) 100 MG/10 ML VIAL ONE (18:38)
[2018-11-14] MEDS ORDERED: ROCURONIUM BROMIDE 10 MG/ML 10 ML VIAL IV ONE (18:38)
[2018-11-14] MEDS ORDERED: GLYCOPYRROLATE 0.2 MG/ML 2 ML VIAL ONE (18:38)
[2018-11-14] MEDS ORDERED: LIDOCAINE 1% INJ 10MG/ML (20 ML MDV) ONE (18:38)
[2018-11-14] MEDS ORDERED: ONDANSETRON 4 MG/2 ML VIAL ONE (18:38)
[2018-11-14] MEDS ORDERED: NEOSTIGMINE 1 MG/ML 10 ML VIAL ONE (18:38)
[2018-11-14] MEDS ORDERED: fentaNYL (PF) 50 MCG/ML 2 ML AMP ONE (18:38)
[2018-11-14] MEDS ORDERED: PROPOFOL 10 MG/ML 20 ML VIAL IV ONE (18:38)
[2018-11-14] MEDS ORDERED: SODIUM CHLORIDE 0.9% 1,000 ML IV ONE (18:41)
[2018-11-14] MEDS ORDERED: BUPIVACAIN-EPI 0.25%-1:200,000 30 ML VIAL SQ ONE (19:06)
[2018-11-14] MEDS ORDERED: HYDROmorphone 1 MG/ML 1 ML SYRINGE IVP PRN (20:34)
[2018-11-14] MEDS ORDERED: METOCLOPRAMIDE 5 MG/ML 2 ML VIAL IVP PRN (20:34)
--- NOTE | 2018-11-14 20:34 | P.OP ---
Date of Procedure: 11/14/18 Preoperative Diagnosis: Cholelithiasis, acute cholecystitis Postoperative Diagnosis: Cholelithiasis, acute cholecystitis, empyema of the gallbladder, gangrene of the gallbladder Procedure(s) Performed: Laparoscopy, open cholecystectomy with placement of drain Anesthesia: MARQUITA Surgeon: Minna Chapman Estimated Blood Loss (ml): 125 Pathology: other (Gallbladder) Condition: stable Disposition: PACU Indications for Procedure: The patient had had pain since Friday. An outpatient CAT scan was suggestive of acute cholecystitis so he was worked up further and admitted through the ER Operative Findings: The gallbladder was markedly enlarged and thickened. It was distended with a significant amount of purulent smelling bile. There were gangrenous changes with some phlegmon developing around the gallbladder Description of Procedure: The patient's taken the operative suite where he is prepped and draped in the usual sterile manner under a general endotracheal anesthetic. A supraumbilical incision was made an optical trocar was placed into the abdominal cavity. Pneumoperitoneum was established with CO2 gas. The patient was placed into reverse Trendelenburg position. Sites are chosen for accessory trochars and these are placed through small skin incisions. The omentum is dissected off of the gallbladder. The gallbladder is then found to be markedly enlarged and there is gangrenous change with some phlegmon. The gallbladder was too enlarged and thickened to be able to safely grasped with laparoscopic instruments. Therefore the laparoscopy was discontinued. The abdomen was entered through a right subcostal incision. Small bleeding points are controlled with electrocautery. A Bookwalter retractor was then placed. The gallbladder was decompressed of about 250 mL's of malodorous bile. Culture was obtained. The gallbladder was then palpated there was significant edema. The gallbladder is then dissected off of the liver in a domed down manner. The area of the cystic duct and cystic artery were identified. These are dissected free and suture ligated with 0 Vicryl suture. The gallbladder was then passed off. The liver bed was then irrigated. Small bleeding points were controlled with electroca utery. There was some oozing noted but no significant bleeding. A piece of Snow was placed in the liver bed and then a 19-Serbian drain was placed through one of the trocar sites and allowed to lay in the subhepatic space. A tractor was removed. The posterior fascia and peritoneal layers were closed with 1 PDS. The anterior fascial layers were closed with 1 PDS. The skin was closed with jv. The trocar site at the supraumbilical incision was closed with 0 Vicryl and the skin was closed with jv. Sterile dressings were applied. He tolerated the procedure without difficulty and was taken recovery room in satisfactory condition. According to or personnel, WERE correct.
[2018-11-14] MEDS ORDERED: ACETAMINOPHEN IV (For NPO) 1,000 MG/100 ML VIAL IVPB ONE (20:53)
[2018-11-14] MEDS: KETOROLAC 30 MG/ML 1 ML VIAL IVP SCH (20:53)
[2018-11-14] MEDS: FUROSEMIDE 40 MG TAB PO SCH (22:05)
[2018-11-14] MEDS: LISINOPRIL 20 MG TAB PO SCH (22:05)
[2018-11-15] MEDS: SODIUM CHLORIDE 0.9% 1,000 ML IV SCH ×5 (00:02→21:47)
[2018-11-15] MEDS: KETOROLAC 30 MG/ML 1 ML VIAL IVP SCH ×4 (03:29→21:44)
[2018-11-15] MEDS: metroNIDAZOLE-NS PMX 500 MG in SALINE 1 100ML.BAG IVPB SCH ×3 (08:30→23:30)
[2018-11-15] MEDS: LEVOTHYROXINE 50 MCG TAB PO SCH (08:30)
[2018-11-15] MEDS: LEVOTHYROXINE 100 MCG TAB PO SCH (08:30)
[2018-11-15] MEDS: ATENOLOL 50 MG TAB PO SCH (08:30)
[2018-11-15] MEDS: LISINOPRIL 20 MG TAB PO SCH ×2 (08:30→21:54)
[2018-11-15] MEDS: PANTOPRAZOLE 40 MG/10 ML VIAL IVP SCH (08:30)
[2018-11-15] MEDS: ALLOPURINOL 300 MG TAB PO SCH (08:31)
[2018-11-15] MEDS: FUROSEMIDE 40 MG TAB PO SCH ×2 (08:31→21:51)
[2018-11-15] MEDS: ATORVASTATIN 40 MG TAB PO SCH (08:31)
[2018-11-15] MEDS: TAMSULOSIN 0.4 MG CAP.ER.24H PO SCH (08:31)
[2018-11-15] MEDS: FLECAINIDE 50 MG TAB PO SCH ×2 (08:31→21:44)
[2018-11-15] MEDS: MINOXIDIL 10 MG TAB PO SCH (08:32)
[2018-11-15] MEDS: SPIRONOLACTONE-HCTZ 25-25MG 1 EACH TAB PO SCH (08:32)
[2018-11-15 08:49] LABS: Albumin 3.4 g/dL (3.5-5.0); Calcium 8.2 mg/dL (8.4-10.2); Total Bilirubin 1.5 mg/dL (0.2-1.3); Total Protein 6.7 g/dL (6.3-8.2)
[2018-11-15 08:57] LABS: Potassium 5.2 mmol/L (3.5-5.1)
[2018-11-15 08:59] LABS: Basophils % (A) 0 %; Eosinophils # (A) 0.1 k/uL (0-0.7); Eosinophils % (A) 1 %; HCT 36.6 % (39.0-53.0); HGB 11.9 gm/dL (13.0-17.5); Lymphocytes # (A) 0.4 k/uL (1.0-4.8); Lymphocytes % (A) 5 %; MCH 34.3 pg (25.0-35.0); MCHC 32.6 g/dL (31.0-37.0); MCV 105.2 fL (80.0-100.0); Macrocytosis Moderate; Mean Platelet Volume 8.4; Monocytes # (A) 0.8 k/uL (0-1.0); Monocytes % (A) 10 %; Neutrophils # (A) 6.8 k/uL (1.3-7.7); Neutrophils % (A) 80 %; Platelet Count 149 k/uL (150-450); RBC 3.48 m/uL (4.30-5.90); RDW 15.7 % (11.5-15.5); WBC 8.4 k/uL (3.8-10.6)
--- NOTE | 2018-11-15 10:39 | PN ---
PROGRESS NOTE CHIEF COMPLAINT: Status post cholecystectomy. HISTORY OF PRESENT ILLNESS: This gentleman is doing fairly well. He had to have an open procedure because of gangrenous and infected gallbladder. REVIEW OF SYSTEMS: He is awake and alert and not having a great deal of pain. PHYSICAL EXAM: Chest is clear. Breath sounds are diminished due to his size. Cardiac exam is normal. Abdomen is soft, nontender. IMPRESSION: 1. Status post cholecystectomy. 2. Hypertension. PLAN: Continue to follow with surgery. MMODL / IJN: [id number] /
[2018-11-15] MEDS: IPRATROPIUM-ALBUTEROL 3 ML NEB INHALATION SCH ×3 (11:17→20:06)
--- NOTE | 2018-11-15 11:54 | P.PN ---
Subjective Progress Note Date: 11/15/18 Principal diagnosis: Status post open cholecystectomy The patient is postop day 1 from an open cholecystectomy. He has expected abdominal pain. Denies nausea or vomiting. He has ambulated in the room. Denies using his incentive spirometry today. Objective - Vital Signs Vital signs: Vital Signs Temp 98.9 F 11/15/18 05:00 Pulse 84 11/15/18 11:31 Resp 18 11/15/18 05:00 BP 114/68 11/15/18 05:00 Pulse Ox 91 L 11/15/18 01:45 Intake & Output 11/14/18 11/15/18 11/15/18 18:59 06:59 18:59 Intake Total 2200 3450 Output Total 240 25 Balance 2200 3210 -25 Intake: IV 500 200 Intake, IV Titration 1700 3250 Amount Sodium Chloride 0.9% 1, 1650 000 ml @ 0 mls/hr IV .[facility] Rx#:[id number] Sodium Chloride 0.9% 1, 1600 1600 000 ml @ 200 mls/hr IV . Q5H [facility] Rx#:[id number]-NS PMX 500 100 mg In Saline 1 100ml.bag @ 100 mls/hr IVPB Q8H [facility] Rx#:[id number] Output: Drainage 140 25 Right Anterior Abdomen 140 25 Estimated Blood Loss 100 Other: # Voids 2 - Constitutional General appearance: Present: cooperative, no acute distress - Respiratory Respiratory: bilateral: CTA (But diminished at the bases) - Cardiovascular Rhythm: regular - Gastrointestinal General gastrointestinal: Present: decreased bowel sounds Localized gastrointestinal: surgical scar: diffuse (Dressing is intact clean and dry. YANA is serosanguineous) - Labs CBC & Chem 7: 11/15/18 08:19 11/15/18 08:19 Labs: Abnormal Lab Results - Last 24 Hours (Table) 11/15/18 11/15/18 Range/Units 08:19 08:19 RBC 3.48 L (4.30-5.90) m/uL Hgb 11.9 L (13.0-17.5) gm/dL Hct 36.6 L (39.0-53.0) % MCV 105.2 H (80.0-100.0) fL RDW 15.7 H (11.5-15.5) % Plt Count 149 L (150-450) k/uL Lymphocytes # 0.4 L (1.0-4.8) k/uL Potassium 5.2 H (3.5-5.1) mmol/L BUN 44 H (9-20) mg/dL Glucose 126 H (74-99) mg/dL Calcium 8.2 L (8.4-10.2) mg/dL Total Bilirubin 1.5 H (0.2-1.3) mg/dL Albumin 3.4 L (3.5-5.0) g/dL Microbiology - Last 24 Hours (Table) 11/14/18 20:30 Wound Culture - Preliminary Other - Other 11/14/18 20:30 Anaerobic Culture - Preliminary Other - Other 11/13/18 21:05 Blood Culture - Preliminary Blood No Growth after 24 hours Assessment and Plan (1) Cholelithiasis Current Visit: Yes Status: Acute Code(s): K80.20 - CALCULUS OF GALLBLADDER W/O CHOLECYSTITIS W/O OBSTRUCTION SNOMED Code(s): 072943046 (2) Atrial fibrillation Current Visit: Yes Status: Acute Code(s): I48.91 - UNSPECIFIED ATRIAL FIBRILLATION SNOMED Code(s): 75165974 (3) Cholecystitis Current Visit: Yes Status: Acute Code(s): K81.9 - CHOLECYSTITIS, UNSPECIFIED SNOMED Code(s): 81017684 Plan: The patient's postoperative day 1 open cholecystectomy. The gallbladder was markedly enlarged and edematous. It was followed malodorous bile. This is likely empyema. We'll continue the IV antibiotics. DVT and ulcer prophylaxis. Encourage incentive spirometry. Encourage activity. Progressing slowly.
[2018-11-16] MEDS: SODIUM CHLORIDE 0.9% 1,000 ML IV SCH ×2 (02:22→05:44)
[2018-11-16] MEDS: KETOROLAC 30 MG/ML 1 ML VIAL IVP SCH ×3 (02:22→17:03)
[2018-11-16] MEDS: PANTOPRAZOLE 40 MG/10 ML VIAL IVP SCH (07:28)
[2018-11-16] MEDS: TAMSULOSIN 0.4 MG CAP.ER.24H PO SCH (07:28)
[2018-11-16] MEDS: LISINOPRIL 20 MG TAB PO SCH ×2 (07:28→23:55)
[2018-11-16] MEDS: ATORVASTATIN 40 MG TAB PO SCH (07:29)
[2018-11-16] MEDS: ALLOPURINOL 300 MG TAB PO SCH (07:29)
[2018-11-16] MEDS: ATENOLOL 50 MG TAB PO SCH (07:29)
[2018-11-16] MEDS: FUROSEMIDE 40 MG TAB PO SCH ×2 (07:29→20:37)
[2018-11-16] MEDS: LEVOTHYROXINE 50 MCG TAB PO SCH (07:29)
[2018-11-16] MEDS: LEVOTHYROXINE 100 MCG TAB PO SCH (07:29)
[2018-11-16] MEDS: FLECAINIDE 50 MG TAB PO SCH ×2 (07:30→20:37)
[2018-11-16] MEDS: SPIRONOLACTONE-HCTZ 25-25MG 1 EACH TAB PO SCH (07:41)
[2018-11-16] MEDS: metroNIDAZOLE-NS PMX 500 MG in SALINE 1 100ML.BAG IVPB SCH (07:59)
[2018-11-16] MEDS: MINOXIDIL 10 MG TAB PO SCH (08:00)
[2018-11-16] MEDS: IPRATROPIUM-ALBUTEROL 3 ML NEB INHALATION SCH ×4 (08:29→19:59)
--- NOTE | 2018-11-16 09:23 | P.PN ---
Subjective Progress Note Date: 11/16/18 Principal diagnosis: Status post open cholecystectomy The patient's postoperative day 2 open cholecystectomy. He's doing fairly well. He does have some occasional hypoxia. He is using his CPAP and receiving breathing treatments. Tolerating a diet without nausea or vomiting. Ambulating in the halls. Objective - Vital Signs Vital signs: Vital Signs Temp 97.7 F 11/16/18 04:52 Pulse 84 11/16/18 08:44 Resp 18 11/16/18 07:30 BP 110/61 11/16/18 07:30 Pulse Ox 95 11/16/18 07:31 Intake & Output 11/15/18 11/16/18 11/16/18 18:59 06:59 18:59 Output Total 75 20 Balance -75 -20 Output: Drainage 75 20 Right Anterior Abdomen 75 20 Other: Voiding Method Bedside Commode # Voids 2 2 - Constitutional General appearance: Present: cooperative, no acute distress - Gastrointestinal General gastrointestinal: Present: decreased bowel sounds, distended (Minimally), soft Localized gastrointestinal: surgical scar: diffuse (Dressing is intact clean and dry. YANA is serosanguineous) - Labs CBC & Chem 7: 11/15/18 08:19 11/15/18 08:19 Labs: Microbiology - Last 24 Hours (Table) 11/13/18 21:05 Blood Culture - Preliminary Blood No Growth after 48 hours 11/14/18 20:30 Gram Stain - Preliminary Other - Other Wound Culture - Preliminary 11/14/18 20:30 Anaerobic Culture - Preliminary Other - Other Assessment and Plan (1) Cholelithiasis Current Visit: Yes Status: Acute Code(s): K80.20 - CALCULUS OF GALLBLADDER W/O CHOLECYSTITIS W/O OBSTRUCTION SNOMED Code(s): 534806856 (2) Atrial fibrillation Current Visit: Yes Status: Acute Code(s): I48.91 - UNSPECIFIED ATRIAL FIBRILLATION SNOMED Code(s): 27285414 (3) Cholecystitis Current Visit: Yes Status: Acute Code(s): K81.9 - CHOLECYSTITIS, UNSPECIFIED SNOMED Code(s): 55282928 Plan: The patient's doing well. We'll continue the IV antibiotics pending cultures. The Gram stain did show at least 2 different organisms. Hep-Lock the IV. Aggressive pulmonary toilet. Progressing slowly.
[2018-11-16 09:31] LABS: ALT 35 U/L (21-72); AST 45 U/L (17-59); African American GFR (CKD) >90 (>60 ml/min/1.73 sqM); Albumin 2.9 g/dL (3.5-5.0); Alkaline Phosphatase 86 U/L (38-126); Anion Gap 8 mmol/L; Blood Urea Nitrogen 34 mg/dL (9-20); Calcium 7.7 mg/dL (8.4-10.2); Carbon Dioxide 25 mmol/L (22-30); Chloride 101 mmol/L (98-107); Glucose 150 mg/dL (74-99); Sodium 134 mmol/L (137-145); Total Bilirubin 1.5 mg/dL (0.2-1.3); Total Protein 5.9 g/dL (6.3-8.2)
[2018-11-16 09:33] LABS: Potassium 4.5 mmol/L (3.5-5.1)
[2018-11-16] MEDS: HYDROcodone/APAP 5-325MG 1 EACH TAB PO PRN (10:38)
--- NOTE | 2018-11-16 12:34 | PN ---
PROGRESS NOTE CHIEF COMPLAINT: Abdominal pain. HISTORY OF PRESENT ILLNESS: This gentleman is doing fairly well. He has had no fever, chills, chest pain, shortness of breath, nausea, vomiting, etc. He has not passed gas. He is eating. PHYSICAL EXAMINATION: His color is fairly good. Breath sounds are heard bilaterally. Cardiac exam is normal. IMPRESSION: 1. Status post open cholecystectomy for gangrenous cholecystitis. 2. Hypertension. PLAN: Continue to progress activity and diet. MMODL / IJN: [id number] /
[2018-11-16] MEDS: metroNIDAZOLE 500 MG TAB PO SCH (17:30)
[2018-11-17] MEDS: metroNIDAZOLE 500 MG TAB PO SCH ×4 (00:40→23:48)
[2018-11-17] MEDS: LEVOTHYROXINE 100 MCG TAB PO SCH (05:39)
[2018-11-17] MEDS: LEVOTHYROXINE 50 MCG TAB PO SCH (05:39)
[2018-11-17] MEDS: ALLOPURINOL 300 MG TAB PO SCH (08:07)
[2018-11-17] MEDS: ATENOLOL 50 MG TAB PO SCH (08:07)
[2018-11-17] MEDS: FLECAINIDE 50 MG TAB PO SCH ×2 (08:07→20:21)
[2018-11-17] MEDS: RIVAROXABAN 20 MG TAB PO SCH (08:07)
[2018-11-17] MEDS: PANTOPRAZOLE 40 MG TABLET PO SCH (08:07)
[2018-11-17] MEDS: MINOXIDIL 10 MG TAB PO SCH ×2 (08:07→08:09)
[2018-11-17] MEDS: FUROSEMIDE 40 MG TAB PO SCH ×2 (08:07→20:21)
[2018-11-17] MEDS: TAMSULOSIN 0.4 MG CAP.ER.24H PO SCH (08:07)
[2018-11-17] MEDS: SPIRONOLACTONE-HCTZ 25-25MG 1 EACH TAB PO SCH (08:07)
[2018-11-17] MEDS: LISINOPRIL 20 MG TAB PO SCH ×2 (08:07→20:21)
[2018-11-17] MEDS: ATORVASTATIN 40 MG TAB PO SCH (08:07)
[2018-11-17] MEDS: IPRATROPIUM-ALBUTEROL 3 ML NEB INHALATION SCH ×4 (09:17→20:07)
[2018-11-17] MEDS: LEVOFLOXACIN 500MG-D5W PMX 500 MG in DEXTROSE/WATER 1 100ML.BAG IVPB SCH (12:12)
--- NOTE | 2018-11-17 18:31 | P.PN ---
Subjective Progress Note Date: 11/17/18 Principal diagnosis: Status post open cholecystectomy The patient is postoperative day 3 open cholecystectomy. Having expected incisional pain. No nausea or vomiting. Tolerating a diet. He is receiving breathing treatments. Nursing reports drainage from the lateral part of his incision that began this morning. Objective - Vital Signs Vital signs: Vital Signs Temp 98.0 F 11/17/18 12:04 Pulse 88 11/17/18 16:30 Resp 16 11/17/18 16:30 BP 102/53 11/17/18 12:04 Pulse Ox 93 L 11/17/18 16:18 Intake & Output 11/16/18 11/17/18 11/17/18 18:59 06:59 18:59 Intake Total 600 590 700 Output Total 30 30 Balance 570 590 670 Intake: Intake, IV Titration 600 Amount Sodium Chloride 0.9% 1, 600 000 ml @ 200 mls/hr IV . [facility] Rx#:[id number] Oral 590 700 Output: Drainage 30 30 Right Anterior Abdomen 30 30 Other: Voiding Method Bedside Commode # Voids 3 3 - Constitutional General appearance: Present: cooperative, no acute distress - Respiratory Details: Mildly dyspneic, doing fairly well on the incentive spirometry, about 2000- 2500ml - Cardiovascular Rhythm: regular - Gastrointestinal General gastrointestinal: Present: decreased bowel sounds, soft Localized gastrointestinal: surgical scar: diffuse (The incision is healing with no evidence of cellulitis. There is serosanguineous drainage on the dressing. The dressing was changed. The YANA is serosanguineous) - Labs CBC & Chem 7: 11/15/18 08:19 11/16/18 09:02 Labs: Microbiology - Last 24 Hours (Table) 11/14/18 20:30 Anaerobic Culture - Preliminary Other - Other 11/14/18 20:30 Gram Stain - Preliminary Other - Other Wound Culture - Preliminary Escherichia coli Klebsiella pneumoniae 11/13/18 21:05 Blood Culture - Preliminary Blood No Growth after 72 hours Assessment and Plan (1) Cholelithiasis Current Visit: Yes Status: Acute Code(s): K80.20 - CALCULUS OF GALLBLADDER W/O CHOLECYSTITIS W/O OBSTRUCTION SNOMED Code(s): 185515880 (2) Atrial fibrillation Current Visit: Yes Status: Acute Code(s): I48.91 - UNSPECIFIED ATRIAL FIBRILLATION SNOMED Code(s): 60632561 (3) Cholecystitis Current Visit: Yes Status: Acute Code(s): K81.9 - CHOLECYSTITIS, UNSPECIFIED SNOMED Code(s): 68181192 (4) Empyema of gallbladder Current Visit: Yes Status: Acute Code(s): K81.0 - ACUTE CHOLECYSTITIS SNOMED Code(s): 60549787 Plan: The patient is progressing slowly. The incision will be monitored. The culture of the bile has grown E. coli and Klebsiella pneumoniae. Antibiotics were changed by medicine. Sensitivity is still pending. Anticipate at least another 24-48 hours in the hospital with her everything progresses well.
--- NOTE | 2018-11-17 23:11 | P.PN ---
Subjective Progress Note Date: 11/17/18 Principal diagnosis: Acute cholecystitis status post cholecystectomy Acute kidney injury Patient is 63-year-old male with a known history of multiple medical problems including obstructive sleep apnea, morbid obesity with BMI 40.5 was admitted to hospital due to acute cholecystitis. Fluid cultures are growing E. coli and Klebsiella. Continue with antibiotics in the form of Flagyl and Levaquin will be added. On 11/17/2018 Patient is able to sit in the chair comfortably. Status post cholecystectomy on 11/14/2018 No fever no chills. Denied antibiotics. Gen. surgery is following. Patient is able to tolerate oral diet. No nausea vomiting. Does complain of some pain at the incisional site. There is some serosanguineous drainage from the lateral part of the incision as per the nursing staff. No other acute overnight issues. Current medications reviewed. Objective - Vital Signs Vital signs: Vital Signs Temp 98.1 F 11/17/18 05:00 Pulse 76 11/17/18 09:32 Resp 18 11/17/18 05:00 BP 101/63 11/17/18 05:00 Pulse Ox 94 L 11/17/18 05:00 Intake & Output 11/16/18 11/17/18 11/17/18 18:59 06:59 18:59 Intake Total 600 590 700 Output Total 30 30 Balance 570 590 670 Intake: Intake, IV Titration 600 Amount Sodium Chloride 0.9% 1, 600 000 ml @ 200 mls/hr IV . Q5H [facility] Rx#:[id number] Oral 590 700 Output: Drainage 30 30 Right Anterior Abdomen 30 30 Other: Voiding Method Bedside Commode # Voids 3 - Exam PHYSICAL EXAMINATION: Patient is lying in the bed comfortably, no acute distress, awake alert and oriented. Morbidly obese. HEENT: Normocephalic. Neck is supple. Pupils reactive. Nostrils clear. Oral cavity is moist. Ears reveal no drainage. Neck reveals no JVD, carotid bruits, or thyromegaly. CHEST EXAMINATION: Trachea is central. Symmetrical expansion. Bibasilar diminished air entry. Lung bui clear to auscultation and percussion. CARDIAC: Normal S1, S2 with no gallops. No murmurs ABDOMEN: Soft. Mild tenderness at the surgical site. No purulent drainage noted. Bowel sounds sluggish. No organomegaly. No abdominal bruits. Extremities: reveal no edema. No clubbing or cyanosis Neurologically awake, alert, oriented x3 with well-coordinated movements. No focal deficits noted Skin: No rash or skin lesions. Psychiatric: Coperative. Nonsuicidal Musculoskeletal: No joint swelling or deformity. Normal range of motion. - Labs CBC & Chem 7: 11/15/18 08:19 11/16/18 09:02 Labs: Microbiology - Last 24 Hours (Table) 11/14/18 20:30 Gram Stain - Preliminary Other - Other Wound Culture - Preliminary Escherichia coli Klebsiella pneumoniae 11/13/18 21:05 Blood Culture - Preliminary Blood No Growth after 72 hours Assessment and Plan Assessment: Status post cholecystectomy due to acute gangrenous cholecystitis Wound cultures showing E. coli and Klebsiella. Hypertension Objective sleep apnea on CPAP Morbid obesity BMI 48.5 History of gout Hypothyroidism DVT prophylaxis. On xarelto. Plan Patient be continued on current supportive management. Continue with Flagyl and added Levaquin. Cultures growing E. coli and Klebsiella. General surgery is following. Encourage ambulation and incentive spirometry. Follow up closely. Further recommendations based on the clinical course. Time with Patient: Greater than 30
[2018-11-17] MEDS: HYDROcodone/APAP 5-325MG 1 EACH TAB PO PRN (23:48)
[2018-11-18] MEDS: LEVOTHYROXINE 50 MCG TAB PO SCH (06:00)
[2018-11-18] MEDS: LEVOTHYROXINE 100 MCG TAB PO SCH (06:01)
[2018-11-18] MEDS: ALLOPURINOL 300 MG TAB PO SCH (08:54)
[2018-11-18] MEDS: PANTOPRAZOLE 40 MG TABLET PO SCH (08:54)
[2018-11-18] MEDS: ATORVASTATIN 40 MG TAB PO SCH (08:55)
[2018-11-18] MEDS: ATENOLOL 50 MG TAB PO SCH (08:57)
[2018-11-18] MEDS: MINOXIDIL 10 MG TAB PO SCH (08:59)
[2018-11-18] MEDS: FUROSEMIDE 40 MG TAB PO SCH ×2 (09:10→21:25)
[2018-11-18] MEDS: metroNIDAZOLE 500 MG TAB PO SCH ×3 (09:10→23:40)
[2018-11-18] MEDS: SPIRONOLACTONE-HCTZ 25-25MG 1 EACH TAB PO SCH (09:10)
[2018-11-18] MEDS: LISINOPRIL 20 MG TAB PO SCH ×2 (09:10→21:25)
[2018-11-18] MEDS: IPRATROPIUM-ALBUTEROL 3 ML NEB INHALATION SCH ×4 (09:14→19:41)
[2018-11-18] MEDS: FLECAINIDE 50 MG TAB PO SCH ×2 (10:39→21:25)
[2018-11-18] MEDS: RIVAROXABAN 20 MG TAB PO SCH (13:54)
[2018-11-18] MEDS: TAMSULOSIN 0.4 MG CAP.ER.24H PO SCH (13:54)
[2018-11-18] MEDS: LEVOFLOXACIN 500MG-D5W PMX 500 MG in DEXTROSE/WATER 1 100ML.BAG IVPB SCH (14:17)
[2018-11-18] MEDS ORDERED: POLYETHYLENE GLYCOL 3350 17 GM POWD.PACK PO STA (14:33)
--- NOTE | 2018-11-18 15:11 | P.PN ---
Subjective Progress Note Date: 11/18/18 Principal diagnosis: Status post open cholecystectomy The patient is doing well. He is anxious to go home. Denies nausea or vomiting. Ambulating with a walker. Objective - Vital Signs Vital signs: Vital Signs Temp 98.2 F 11/18/18 14:07 Pulse 93 11/18/18 14:07 Resp 19 11/18/18 14:07 BP 129/64 11/18/18 14:07 Pulse Ox 96 11/18/18 12:26 Intake & Output 11/17/18 11/18/18 11/18/18 18:59 06:59 18:59 Intake Total 700 1130 540 Output Total 30 35 Balance 670 1130 505 Intake: Oral 700 1130 540 Output: Drainage 30 35 Right Anterior Abdomen 30 35 Other: Voiding Method Toilet Toilet # Voids 3 2 3 - Constitutional General appearance: Present: cooperative, no acute distress - Gastrointestinal General gastrointestinal: Present: normal bowel sounds, soft Localized gastrointestinal: surgical scar: diffuse (The lateral one third of his incision in the right upper quadrant is erythematous today. There is some drainage that appears to be mucoid. Likely early wound infection. The jv are removed and there was drainage of a moderate amount of fluid. Nursing is given wound care instructions) - Labs CBC & Chem 7: 11/15/18 08:19 11/16/18 09:02 Labs: Microbiology - Last 24 Hours (Table) 11/14/18 20:30 Gram Stain - Final Other - Other Wound Culture - Final Escherichia coli Klebsiella pneumoniae 11/13/18 21:05 Blood Culture - Preliminary Blood No Growth after 96 hours 11/14/18 20:30 Anaerobic Culture - Preliminary Other - Other Assessment and Plan (1) Cholelithiasis Current Visit: Yes Status: Acute Code(s): K80.20 - CALCULUS OF GALLBLADDER W/O CHOLECYSTITIS W/O OBSTRUCTION SNOMED Code(s): 347481793 (2) Atrial fibrillation Current Visit: Yes Status: Acute Code(s): I48.91 - UNSPECIFIED ATRIAL FIBRILLATION SNOMED Code(s): 34809566 (3) Cholecystitis Current Visit: Yes Status: Acute Code(s): K81.9 - CHOLECYSTITIS, UNSPECIFIED SNOMED Code(s): 03064134 (4) Empyema of gallbladder Current Visit: Yes Status: Acute Code(s): K81.0 - ACUTE CHOLECYSTITIS SNOMED Code(s): 25486363 (5) Wound infection Current Visit: Yes Status: Acute Code(s): T14.8XXA - OTHER INJURY OF UNSPECIFIED BODY REGION, INITIAL ENCOUNTER; L08.9 - LOCAL INFECTION OF THE SKIN AND SUBCUTANEOUS TISSUE, UNSP SNOMED Code(s): 44213098 Plan: The patient needs to be on antibiotics for his empyema the gallbladder. He's also developed a wound infection which should respond to the same antibiotics. He is at high risk for the wound infection because of the empyema. Wound care will be started in the hospital. We'll arrange home health to follow him. He'll likely be able to be discharged tomorrow on oral Levaquin and Flagyl. I'll see him in the office in 2 weeks.
[2018-11-18] MEDS: HYDROcodone/APAP 5-325MG 1 EACH TAB PO PRN (15:28)
[2018-11-19] MEDS: LEVOTHYROXINE 100 MCG TAB PO SCH (05:32)
[2018-11-19] MEDS: LEVOTHYROXINE 50 MCG TAB PO SCH (05:32)
[2018-11-19] MEDS: IPRATROPIUM-ALBUTEROL 3 ML NEB INHALATION SCH ×4 (09:02→19:55)
[2018-11-19] MEDS: metroNIDAZOLE 500 MG TAB PO SCH ×3 (09:12→23:24)
[2018-11-19] MEDS: DOCUSATE 100 MG CAP PO PRN (09:12)
[2018-11-19] MEDS: ATORVASTATIN 40 MG TAB PO SCH (09:12)
[2018-11-19] MEDS: ALLOPURINOL 300 MG TAB PO SCH (09:13)
[2018-11-19] MEDS: RIVAROXABAN 20 MG TAB PO SCH (09:13)
[2018-11-19] MEDS: TAMSULOSIN 0.4 MG CAP.ER.24H PO SCH (09:13)
[2018-11-19] MEDS: HYDROcodone/APAP 5-325MG 1 EACH TAB PO PRN ×2 (09:13→20:26)
[2018-11-19] MEDS: LISINOPRIL 20 MG TAB PO SCH ×2 (09:13→20:26)
[2018-11-19] MEDS: ATENOLOL 50 MG TAB PO SCH (09:13)
[2018-11-19] MEDS: PANTOPRAZOLE 40 MG TABLET PO SCH (09:13)
[2018-11-19] MEDS: FUROSEMIDE 40 MG TAB PO SCH ×2 (09:13→20:26)
[2018-11-19] MEDS: SPIRONOLACTONE-HCTZ 25-25MG 1 EACH TAB PO SCH (09:17)
[2018-11-19] MEDS: MINOXIDIL 10 MG TAB PO SCH (09:17)
[2018-11-19] MEDS: FLECAINIDE 50 MG TAB PO SCH ×2 (09:17→20:27)
[2018-11-19] MEDS: LEVOFLOXACIN 500 MG TAB PO SCH (13:18)
--- NOTE | 2018-11-20 00:10 | P.PN ---
Subjective Progress Note Date: 11/18/18 Principal diagnosis: Acute cholecystitis status post cholecystectomy Acute kidney injury Patient is 63-year-old male with a known history of multiple medical problems including obstructive sleep apnea, morbid obesity with BMI 40.5 was admitted to hospital due to acute cholecystitis. Fluid cultures are growing E. coli and Klebsiella. Continue with antibiotics in the form of Flagyl and Levaquin will be added. On 11/17/2018 Patient is able to sit in the chair comfortably. Status post cholecystectomy on 11/14/2018 No fever no chills. Denied antibiotics. Gen. surgery is following. Patient is able to tolerate oral diet. No nausea vomiting. Does complain of some pain at the incisional site. There is some serosanguineous drainage from the lateral part of the incision as per the nursing staff. 11/18/2018 Patient denied any complaints of chest pain or shortness of breath. Sitting in the chair comfortably. Otherwise patient was found have purulent drainage from the surgical site. Being continued on antibiotics in the form of Levaquin and Flagyl. No fever no chills. General surgery is following. No nausea vomiting or abdominal pain. Patient did have small bowel movement and is getting stool softeners and laxatives. No other acute overnight issues. Current medications reviewed. Objective - Vital Signs Vital signs: Vital Signs Temp 98.0 F 11/18/18 20:10 Pulse 81 11/18/18 20:10 Resp 22 11/18/18 20:10 BP 99/61 11/18/18 20:10 Pulse Ox 95 11/18/18 20:10 Intake & Output 11/18/18 11/18/18 11/19/18 06:59 18:59 06:59 Intake Total 1130 1040 Output Total 35 Balance 1130 1005 Intake: Intake, IV Titration 100 Amount Levofloxacin 500Mg-D5w 100 Pmx 500 mg In Dextrose/ Water 1 100ml.bag @ 100 mls/hr IVPB Q24H COUNTS INCLUDE 234 BEDS AT THE [facility] Rx#: [id number] Oral 1130 940 Output: Drainage 35 Right Anterior Abdomen 35 Other: Voiding Method Toilet Toilet # Voids 2 3 1 - Exam PHYSICAL EXAMINATION: Patient is lying in the bed comfortably, no acute distress, awake alert and oriented. Morbidly obese. HEENT: Normocephalic. Neck is supple. Pupils reactive. Nostrils clear. Oral cavity is moist. Ears reveal no drainage. Neck reveals no JVD, carotid bruits, or thyromegaly. CHEST EXAMINATION: Trachea is central. Symmetrical expansion. Bibasilar di minished air entry. Lung bui clear to auscultation and percussion. CARDIAC: Normal S1, S2 with no gallops. No murmurs ABDOMEN: Soft. Mild tenderness at the surgical site. Minimal purulent drainage noted. Bowel sounds sluggish. No organomegaly. No abdominal bruits. Extremities: reveal no edema. No clubbing or cyanosis Neurologically awake, alert, oriented x3 with well-coordinated movements. No focal deficits noted Skin: No rash or skin lesions. Psychiatric: Coperative. Nonsuicidal Musculoskeletal: No joint swelling or deformity. Normal range of motion. - Labs CBC & Chem 7: 11/15/18 08:19 11/16/18 09:02 Labs: Microbiology - Last 24 Hours (Table) 11/14/18 20:30 Gram Stain - Final Other - Other Wound Culture - Final Escherichia coli Klebsiella pneumoniae 11/13/18 21:05 Blood Culture - Preliminary Blood No Growth after 96 hours Assessment and Plan Assessment: Status post cholecystectomy due to acute gangrenous cholecystitis. Wound cultures showing E. coli and Klebsiella. Hypertension Objective sleep apnea on CPAP Morbid obesity BMI 48.5 History of gout Hypothyroidism DVT prophylaxis. On xarelto. Plan Patient be continued on current supportive management. Continue with Flagyl and added Levaquin. Cultures growing E. coli and Klebsiella. General surgery is following. Encourage ambulation and incentive spirometry. Follow up closely. Further recommendations based on the clinical course. Time with Patient: Greater than 30
--- NOTE | 2018-11-20 00:11 | P.PN ---
Subjective Progress Note Date: 11/19/18 Principal diagnosis: Acute cholecystitis status post cholecystectomy Acute kidney injury Patient is 63-year-old male with a known history of multiple medical problems including obstructive sleep apnea, morbid obesity with BMI 40.5 was admitted to hospital due to acute cholecystitis. Fluid cultures are growing E. coli and Klebsiella. Continue with antibiotics in the form of Flagyl and Levaquin will be added. On 11/17/2018 Patient is able to sit in the chair comfortably. Status post cholecystectomy on 11/14/2018 No fever no chills. Denied antibiotics. Gen. surgery is following. Patient is able to tolerate oral diet. No nausea vomiting. Does complain of some pain at the incisional site. There is some serosanguineous drainage from the lateral part of the incision as per the nursing staff. 11/18/2018 Patient denied any complaints of chest pain or shortness of breath. Sitting in the chair comfortably. Otherwise patient was found have purulent drainage from the surgical site. Being continued on antibiotics in the form of Levaquin and Flagyl. No fever no chills. General surgery is following. No nausea vomiting or abdominal pain. Patient did have small bowel movement and is getting stool softeners and laxatives. 11/19/2018 No complaints of chest pain or shortness of breath. Patient says that he feels better today. Denied any abdominal pain. drainage from the surgical site is improving. Currently being continued on antibiotics. Patient is also complaining of constipation has not had a full bowel movement for the past 3 or 4 days. Otherwise able to pass flatus. No fever no chills. No other acute overnight issues. Sitting in the chair comfortable at this time. No other acute overnight issues. Current medications reviewed. Objective - Vital Signs Vital signs: Vital Signs Temp 97.5 F L 11/19/18 13:00 Pulse 82 11/19/18 20:05 Resp 18 11/19/18 16:00 BP 103/53 11/19/18 13:00 Pulse Ox 97 11/19/18 13:00 Intake & Output 11/19/18 11/19/18 11/20/18 06:59 18:59 06:59 Intake Total 1080 Balance 1080 Intake: Oral 1080 Other: Voiding Method Toilet Toilet # Voids 1 1 - Exam PHYSICAL EXAMINATION: Patient is lying in the bed comfortably, no acute distress, awake alert and oriented. Morbidly obese. HEENT: Normocephalic. Neck is supple. Pupils reactive. Nostrils clear. Oral cav ity is moist. Ears reveal no drainage. Neck reveals no JVD, carotid bruits, or thyromegaly. CHEST EXAMINATION: Trachea is central. Symmetrical expansion. Bibasilar diminished air entry. Lung bui clear to auscultation and percussion. CARDIAC: Normal S1, S2 with no gallops. No murmurs ABDOMEN: Soft. Mild tenderness at the surgical site. Minimal purulent drainage noted. Bowel sounds sluggish. No organomegaly. No abdominal bruits. Extremities: reveal no edema. No clubbing or cyanosis Neurologically awake, alert, oriented x3 with well-coordinated movements. No focal deficits noted Skin: No rash or skin lesions. Psychiatric: Coperative. Nonsuicidal Musculoskeletal: No joint swelling or deformity. Normal range of motion. - Labs CBC & Chem 7: 11/15/18 08:19 11/16/18 09:02 Labs: Microbiology - Last 24 Hours (Table) 11/14/18 20:30 Anaerobic Culture - Final Other - Other 11/13/18 21:05 Blood Culture - Preliminary Blood No Growth after 120 hours Assessment and Plan Assessment: Status post cholecystectomy due to acute gangrenous cholecystitis. Wound cultures showing E. coli and Klebsiella. Hypertension Objective sleep apnea on CPAP Morbid obesity BMI 48.5 History of gout Hypothyroidism DVT prophylaxis. On xarelto. Plan Patient be continued on current supportive management. Continue with Flagyl and added Levaquin. Cultures growing E. coli and Klebsiella. General surgery is following. Encourage ambulation and incentive spirometry. Follow up closely. Further recommendations based on the clinical course. Time with Patient: Greater than 30
[2018-11-20] MEDS: LEVOTHYROXINE 50 MCG TAB PO SCH (05:39)
[2018-11-20] MEDS: LEVOTHYROXINE 100 MCG TAB PO SCH (05:39)
[2018-11-20] MEDS: DOCUSATE 100 MG CAP PO PRN (05:44)
[2018-11-20] MEDS: TAMSULOSIN 0.4 MG CAP.ER.24H PO SCH (08:05)
[2018-11-20] MEDS: FUROSEMIDE 40 MG TAB PO SCH (08:05)
[2018-11-20] MEDS: ALLOPURINOL 300 MG TAB PO SCH (08:05)
[2018-11-20] MEDS: metroNIDAZOLE 500 MG TAB PO SCH ×2 (08:05→18:04)
[2018-11-20] MEDS: PANTOPRAZOLE 40 MG TABLET PO SCH (08:06)
[2018-11-20] MEDS: RIVAROXABAN 20 MG TAB PO SCH (08:06)
[2018-11-20] MEDS: ATORVASTATIN 40 MG TAB PO SCH (08:06)
[2018-11-20] MEDS: SPIRONOLACTONE-HCTZ 25-25MG 1 EACH TAB PO SCH (08:06)
[2018-11-20] MEDS: ATENOLOL 50 MG TAB PO SCH (08:06)
[2018-11-20] MEDS: MINOXIDIL 10 MG TAB PO SCH (08:06)
[2018-11-20] MEDS: LISINOPRIL 20 MG TAB PO SCH (08:06)
[2018-11-20] MEDS: FLECAINIDE 50 MG TAB PO SCH (08:07)
[2018-11-20] MEDS: IPRATROPIUM-ALBUTEROL 3 ML NEB INHALATION SCH ×3 (08:33→16:09)
--- NOTE | 2018-11-20 09:23 | P.PN ---
Progress Note - Text Progress Note Date: 11/19/18 The patient was evaluated in his room sitting at bedside. He denies any abdominal pain at this time. Incisional pain is very minimal. His wound appears to be healing well. Cipriano that were removed from the lateral aspect appear to have some serous drainage, however granulating well. He is passing flatus but has not had a full bowel movement. The patient needs to be on antibiotics for his empyema the gallbladder. We do recommend that wound care follow the patient once he is discharged. He should be discharged on home antibiotics. He is to follow-up with Dr. Chapman in 2 weeks after discharge
[2018-11-20] MEDS ORDERED: BISACODYL 10 MG SUPP RECTAL STA (11:20)
[2018-11-20] MEDS ORDERED: POLYETHYLENE GLYCOL 3350 17 GM POWD.PACK PO SCH (12:00)
[2018-11-20] MEDS: LEVOFLOXACIN 500 MG TAB PO SCH (12:05)
[2018-11-20 14:28] VITALS: BP 112/74; PULSE 84; RESP 19; TEMP 97
[2018-11-20] MEDS ORDERED: NA PHOS,M-B/NA PHOS,DI-BA 133 ML ENEMA RECTAL ONE (16:22)
--- NOTE | 2018-11-23 15:10 | CDI ---
Documentation Clarification Form Date: 11/23/18 From: Maggie Wayne Phone: If questions call Madison Connor @ [phone], Hours-8:30 am & 5 pm Nick Yost Admit Date: 11/13/2018 11:41:00 PM Patient Name: Zach Melton Visit Number: [id number] Discharge Date: 11/20/2018 7:34:00 PM ATTENTION: The Clinical Documentation Specialists (CDI) and [facility] Coding Staff appreciate your assistance in clarifying documentation. Please respond to the clarification below the line at the bottom and electronically sign. The CDI & [facility] Coding staff will review the response and follow-up if needed. Please note: Queries are made part of the Legal Health Record. If you have any questions, please contact the author of this message via ITS. Dr. Ramone Anne Atrial Fibrillation is documented in the H&P, consult, ED note and progress notes (11/14, 11/15, 11/16, 11/17 & 11/18). History/Risk Factors: cholelithiasis, acute cholecystisit, empyema of gallbladder, & gangrene of gallbladder, WILBERT, HTNOSA, hyperlipidemia EKG/telemetry: no EKG Treatment: Tambocor 50 mg PO Q 12 hr, Xarelto 20 mg PO daily In your professional opinion, can you please clarify the type of Atrial Fibrillation, if known? Chronic/Permanent Paroxysmal Persistent Other, please specify Unable to determine MTDD
--- NOTE | 2018-11-25 17:14 | DS ---
DISCHARGE SUMMARY DATE OF DISCHARGE: 11/20/2018. CHIEF COMPLAINT: Abdominal pain. HISTORY OF PRESENT ILLNESS AND PHYSICAL EXAMINATION: Details of this man's history and physical can be found in the initial workup. LABORATORY STUDIES: While he was in the hospital he had laboratory studies, details of which can be found in the laboratory section of his chart. COURSE IN THE HOSPITAL: After admission he was placed on bedrest and started on intravenous fluids and kept n.p.o. He was seen by Surgery. He was found to have an acute, gangrenous cholecystitis and was taken to the operating room. There was an attempted laparoscopic management of his problem, but it was clear that he had a very large gangrenous gallbladder, and the surgeon had to go to an open procedure. Postoperatively he did surprisingly well, considering his size and the extent of disease of the gallbladder. He was doing well enough to go home on November 20, and he will follow up in the office as well as with Surgery. FINAL DIAGNOSES: 1. Acute, gangrenous cholecystitis. 2. Hypertension. OPERATION: Cholecystectomy. CONSULTATION: General Surgery. He is improved. MMODL / IJN: [id number] /
--- NOTE | 2018-11-27 12:16 | MISC ---
MISCELLANOUS REPORT Atrial fibrillation, chronic and permanent. MMODL / IJN: [id number] /
--- NOTE | 2018-11-30 02:10 | P.DS ---
Providers Date of admission: 11/13/18 23:41 Expected date of discharge: 11/28/18 Attending physician: Ramone Anne Consults: 11/13/18 23:42 Consult Physician Stat Consulting Provider: Minna Chapman Consult Reason/Comments: acute angela Do you want consulting provider notified?: Already Contacted Primary care physician: Ramone Anne Hospital Course: Discharge diagnosis Status post cholecystectomy due to acute gangrenous cholecystitis. Wound cultures showing E. coli and Klebsiella. Hypertension Objective sleep apnea on CPAP Morbid obesity BMI 48.5 History of gout Hypothyroidism DVT prophylaxis. Hospital course Patient is 63-year-old male with a known history of multiple medical problems including obstructive sleep apnea, morbid obesity with BMI 40.5 was admitted to hospital due to acute cholecystitis. Fluid cultures are growing E. coli and Klebsiella. Continue with antibiotics in the form of Flagyl and Levaquin will be added. On 11/17/2018 Patient is able to sit in the chair comfortably. Status post cholecystectomy on 11/14/2018 No fever no chills. Denied antibiotics. Gen. surgery is following. Patient is able to tolerate oral diet. No nausea vomiting. Does complain of some pain at the incisional site. There is some serosanguineous drainage from the lateral part of the incision as per the nursing staff. 11/18/2018 Patient denied any complaints of chest pain or shortness of breath. Sitting in the chair comfortably. Otherwise patient was found have purulent drainage from the surgical site. Being continued on antibiotics in the form of Levaquin and Flagyl. No fever no chills. General surgery is following. No nausea vomiting or abdominal pain. Patient did have small bowel movement and is getting stool softeners and laxatives. 11/19/2018 No complaints of chest pain or shortness of breath. Patient says that he feels better today. Denied any abdominal pain. drainage from the surgical site is improving. Currently being continued on antibiotics. Patient is also complaining of constipation has not had a full bowel movement for the past 3 or 4 days. Otherwise able to pass flatus. No fever no chills. No other acute overnight issues. Sitting in the chair comfortable at this time. 11/20/2018 Patient denied any complaints of chest pain or shortness of breath. Patient did have small bowel movement. No fever no chills. No other acute overnight issues. Patient will be continued on antibiotic course. Stable to be discharged home. PHYSICAL EXAMINATION: Patient is lying in the bed comfortably, no acute distress, awake alert and oriented. Morbidly obese. HEENT: Normocephalic. Neck is supple. Pupils reactive. Nostrils clear. Oral cavity is moist. Ears reveal no drainage. Neck reveals no JVD, carotid bruits, or thyromegaly. CHEST EXAMINATION: Trachea is central. Symmetrical expansion. Bibasilar diminished air entry. Lung bui clear to auscultation and percussion. CARDIAC: Normal S1, S2 with no gallops. No murmurs ABDOMEN: Soft. Mild tenderness at the surgical site. Minimal purulent drainage noted. Bowel sounds sluggish. No organomegaly. No abdominal bruits. Extremities: reveal no edema. No clubbing or cyanosis Neurologically awake, alert, oriented x3 with well-coordinated movements. No focal deficits noted Skin: No rash or skin lesions. Psychiatric: Coperative. Nonsuicidal Musculoskeletal: No joint swelling or deformity. Normal range of motion. Discharge vitals reviewed. Patient Condition at Discharge: Stable Plan - Discharge Summary Discharge Rx Participant: Yes New Discharge Prescriptions: New HYDROcodone/APAP 5-325MG [[place] 5-325] 1 - 2 tab PO Q4H PRN #30 tab PRN Reason: Pain Docusate [Colace] 100 mg PO DAILY PRN #20 cap PRN Reason: Constipation metroNIDAZOLE [Flagyl] 500 mg PO Q8HR 21 Days #7 tab Levofloxacin [Levaquin] 500 mg PO Q24H 7 Days #7 tab Continue Spironolactone-Hctz 25-25Mg [Aldactazide 25-25 MG] 1 tab PO DAILY Furosemide [Lasix] 40 mg PO BID Levothyroxine Sodium [Levo-T] 300 mcg PO QAM Allopurinol [Zyloprim] 300 mg PO DAILY Tamsulosin HCl [Flomax] 0.4 mg PO DAILY Enalapril [Vasotec] 20 mg PO BID Minoxidil 10 mg PO DAILY Rivaroxaban [Xarelto] 20 mg PO DAILY Atorvastatin [Lipitor] 40 mg PO DAILY #30 tab Flecainide [Tambocor] 50 mg PO Q12HR Atenolol 100 mg PO DAILY Levothyroxine Sodium [Synthroid] 50 mcg PO DAILY Discharge Medication List Allopurinol [Zyloprim] 300 mg PO DAILY 05/12/17 [History] Furosemide [Lasix] 40 mg PO BID 05/12/17 [History] Levothyroxine Sodium [Levo-T] 300 mcg PO QAM 05/12/17 [History] Spironolactone-Hctz 25-25Mg [Aldactazide 25-25 MG] 1 tab PO DAILY 05/12/17 [History] Tamsulosin HCl [Flomax] 0.4 mg PO DAILY 04/20/18 [History] Enalapril [Vasotec] 20 mg PO BID 04/22/18 [History] Minoxidil 10 mg PO DAILY 04/22/18 [History] Rivaroxaban [Xarelto] 20 mg PO DAILY 06/15/18 [History] Atorvastatin [Lipitor] 40 mg PO DAILY #30 tab 06/17/18 [Rx] Atenolol 100 mg PO DAILY 11/13/18 [History] Flecainide [Tambocor] 50 mg PO Q12HR 11/13/18 [History] Levothyroxine Sodium [Synthroid] 50 mcg PO DAILY 11/13/18 [History] HYDROcodone/APAP 5-325MG [[place] 5-325] 1 - 2 tab PO Q4H PRN #30 tab 11/18/18 [Rx] Docusate [Colace] 100 mg PO DAILY PRN #20 cap 11/19/18 [Rx] Levofloxacin [Levaquin] 500 mg PO Q24H 7 Days #7 tab 11/19/18 [Rx] metroNIDAZOLE [Flagyl] 500 mg PO Q8HR 21 Days #7 tab 11/19/18 [Rx] Follow up Appointment(s)/Referral(s): Ramone Anne MD [Primary Care Provider] - 11/23/18 2:40 pm Minna Chapman DO [Doctor of Osteopathic Medicine] - 2 Weeks (PATIENT PLEASE CALL FOR APPOINTMENT, OFFICE CURRENTLY CLOSED. ) [facility], [REFERRING] - 11/23/18 (HOME CARE WILL CALL YOU TO SET UP TIME FOR HOME VISIT. ) Patient Instructions/Handouts: Acute Kidney Injury (DC), Open Cholecystectomy (DC) Activity/Diet/Wound Care/Special Instructions: Home nursing to irrigate the wound daily with normal saline. Pack with gauze and cover with ABD pad. No lifting greater than [address] while taking pain medication. Low-fat diet. Eat yogurt or take a probiotic twice a day. This will decrease the chance of antibiotic induced diarrhea Patient has been provided supplied for dressing changes over the weekend, homecare will take over on friday11/23/18. Discharge Disposition: HOME WITH HOME HEALTH SERVICES
== END 2018-11-20 19:34 | disposition home health service (06) | DRG 415 ==
LOC: EC 20:05 → 3NMEDONC 23:41
PROVIDERS: ADMIT Family Medicine; ATTEND Family Medicine
PROC: 0FJ44ZZ Inspection of Gallbladder, Percutaneous Endoscopic Approach (ICD-10-PCS; 2018-11-14)
PROC: 5A09557 Assistance with Respiratory Ventilation, Greater than 96 Consecutive Hours, Continuous Positive Airway Pressure (ICD-10-PCS; 2018-11-14)
PROC: 0FT40ZZ Resection of Gallbladder, Open Approach (ICD-10-PCS; principal; 2018-11-14 09:26)
DX: K80.00 Calculus of gallbladder with acute cholecystitis without obstruction (principal); N17.9 Acute kidney failure, unspecified; Z68.42 Body mass index [BMI] 45.0-49.9, adult; E66.01 Morbid (severe) obesity due to excess calories; K82.A1 Gangrene of gallbladder in cholecystitis; I48.2 Chronic atrial fibrillation; G47.33 Obstructive sleep apnea (adult) (pediatric); K59.00 Constipation, unspecified; R09.02 Hypoxemia; I10 Essential (primary) hypertension; E03.9 Hypothyroidism, unspecified; E78.5 Hyperlipidemia, unspecified; Z79.890 Hormone replacement therapy; Z79.01 Long term (current) use of anticoagulants; Z79.899 Other long term (current) drug therapy; Z99.89 Dependence on other enabling machines and devices; Z87.891 Personal history of nicotine dependence; Z87.440 Personal history of urinary (tract) infections; Z82.49 Family history of ischemic heart disease and other diseases of the circulatory system; Z82.0 Family history of epilepsy and other diseases of the nervous system; Z80.9 Family history of malignant neoplasm, unspecified
CPT/HCPCS: 36415; 74177; 76705; 80048; 80053; 81003; 83605; 83690; 84439; 85025; 85027; 87040; 87070; 87075; 87077; 87186; 87205; 88304; 94640; 94760; 96361; 96365; 99285

== ENCOUNTER → 2018-11-13 | Outpatient (CLI) | payer OTHER, MEDICAID ==
--- NOTE | 2018-11-13 19:13 | CT ---
EXAMINATION TYPE: CT chest-abdomen w con oral and IV DATE OF EXAM: 11/13/2018 COMPARISON: None HISTORY: abdominal pain X [address] DLP: [id number] mGycm Automated exposure control for dose reduction was used. TECHNIQUE: Helical acquisition of images was performed from thoracic inlet to the superior iliac cre sts. Performed with Oral Contrast and with IV Contrast, patient injected with 100 mL of Isovue 300. FINDINGS: CHEST: The airways are unremarkable. The lungs are clear and well expanded. Pleural spaces are negative. There is mild cardiomegaly with panchamber enlargement and prominent left and right coronary calcific ations. No pericardial effusion. Aorta is unremarkable. Pulmonary arterial tree is unremarkable. No a denopathy. No focal skeletal lesions. No incidental extrathoracic soft tissue findings. ABDOMEN: BILIARY TREE: There is moderate gallbladder distention with prominently indistinct gallbladder margin s and edematous reticulation throughout the surrounding right anterior pararenal space. These finding s are consistent with cholecystitis until proven otherwise. The intrahepatic and extra hepatic biliar y tree is unremarkable, not dilated and there is no evidence of cholelithiasis or choledocholithiasis . Liver: No significant abnormality. Pancreas: No significant abnormality. Spleen: No significant abnormality is seen. Adrenals: No significant abnormality is seen. Kidneys: No significant abnormality is seen. Free Air: No free air is visualized. Retroperitoneal Adenopathy: None visualized Bowel: No significant abnormality is seen. Osseous Structures: No significant abnormality is seen. Other: Vasculature is negative for acute findings. IMPRESSION: 1. CT FINDINGS CONSISTENT WITH CHOLECYSTITIS. 2. Mild cardiomegaly with prominent coronary calcifications.
== END | disposition home or self-care (01) ==
LOC: RADCTMAIN 15:23
PROVIDERS: ATTEND Family Medicine
DX: I25.10 Atherosclerotic heart disease of native coronary artery without angina pectoris (principal); I51.7 Cardiomegaly; R10.84 Generalized abdominal pain; R19.00 Intra-abdominal and pelvic swelling, mass and lump, unspecified site; R10.11 Right upper quadrant pain
CPT/HCPCS: 74177; Q9967

== ENCOUNTER → 2020-11-15 | Outpatient (CLI) | payer MEDICAID ==
--- NOTE | 2020-11-15 09:37 | US ---
EXAMINATION TYPE: US liver DATE OF EXAM: 11/15/2020 COMPARISON: 11/13/2018 CLINICAL HISTORY: R94.5 Abnormal liver function test. abn liver function test gb removed 2019 Exam li mited due to body habitus. EXAM MEASUREMENTS: Liver Length: 22 cm Gallbladder Wall: Surgically absent cm CBD: .9 cm Right Kidney: 12.8 x 6.6 x 6.3 cm Pancreas: Obscured by bowel gas Liver: Limited due to body habitus Gallbladder: Surgically absent Evidence for sonographic Vance's sign: No CBD: Limited Right Kidney: No hydronephrosis or masses seen IMPRESSION: 1. Limited examination due to body habitus but the liver does appear heterogeneous and echogenic with poor penetration which suggests hepatic steatosis. 2. Pancreas obscured. 3. Surgically absent gallbladder. Limited evaluation of the common bile duct.
== END | disposition home or self-care (01) ==
LOC: RADUSWWP 08:42
PROVIDERS: ATTEND Family Medicine
DX: R94.5 Abnormal results of liver function studies (principal); Z90.49 Acquired absence of other specified parts of digestive tract
CPT/HCPCS: 76705

== ENCOUNTER → 2020-12-27 | Outpatient (CLI) | payer MEDICAID ==
[2020-12-27 20:06] LABS: Reticulocyte % 3.11 % (0.10-1.80)
[2020-12-28 02:11] LABS: Albumin 4.2 g/dL (3.80-4.90); Albumin/Globulin Ratio 1.68 (1.60-3.17); Anion Gap 11.9 mmol/L (4.00-12.00); Calcium 9.1 mg/dL (8.7-10.3); Carbon Dioxide 24.1 mmol/L (21.6-31.8); Globulin 2.5 g/dL (1.6-3.3); Non-African American GFR(CKD) 90.6 (60.0-200.0); Phosphorus 3.4 mg/dL (2.4-5.1); Potassium 4.2 mmol/L (3.5-5.5); Total Bilirubin 0.7 mg/dL (0.3-1.2); Total Protein 6.7 g/dL (6.2-8.2); Uric Acid 7.4 mg/dL (3.7-8.7)
[2020-12-28 05:45] LABS: Protein, Total 6.7 g/dL (6.2-8.2)
[2020-12-29 07:31] LABS: Methylmalonic Acid >5.00 umol/L (<0.40)
== END | disposition home or self-care (01) ==
LOC: LABWHC1 11:11
PROVIDERS: ATTEND Internal Medicine Hematology & Oncology
DX: E78.5 Hyperlipidemia, unspecified (principal); D64.89 Other specified anemias; D61.818 Other pancytopenia; R59.0 Localized enlarged lymph nodes
CPT/HCPCS: 36415; 80053; 82607; 82747; 83615; 83883; 83921; 84100; 84165; 84550; 85045; 86038; 86334; 86431

== ENCOUNTER → 2021-01-08 | Outpatient (CLI) | payer MEDICAID ==
--- NOTE | 2021-01-10 10:01 | CT ---
EXAMINATION TYPE: CT abdomen pelvis w con DATE OF EXAM: 01/08/2021 COMPARISON: 11/13/2018 INDICATION: enlarged lymph nodes, abnormal labs DLP: 2742.9 mGycm, Automated exposure control for dose reduction was used. CONTRAST: 100 mL of Isovue 300. Study performed with Oral Contrast TECHNIQUE: Axial images were obtained from above the diaphragm to the pubic rami in the axial plane a t 5 mm thick sections. Reconstructed images are reviewed on the computer in the coronal plane. FINDINGS: Limited CT sections are obtained the lung bases. The lung bases are clear. CT ABDOMEN: Liver: Normal Spleen: Normal Pancreas: Normal Adrenal glands: The adrenal glands are normal. Gallbladder: Normal Kidneys: No masses are evident. No hydronephrosis is present. No cysts are present. Delayed images were obtained through the kidneys, which remain unremarkable. Aorta: Vascular calcification is within the aorta. Inferior vena cava: Normal. CT PELVIS: Loops of bowel within the abdomen and pelvis are normal. There are loops of bowel which are incom pletely distended or lack oral contrast limiting their evaluation. Appendix: Not identified. Urinary bladder: Normal. Genitourinary structures: Prostate is normal. Osseous structures: No suspicious lytic or sclerotic lesions. Facet degenerative changes are present. Lymphadenopathy: No suspicious retrocrural periaortic or retrocaval adenopathy is evident. No suspici ous obturator canal iliac chain or inguinal adenopathy evident. Couple small lymph nodes may be withi n the regions. IMPRESSIONS: 1. No suspicious enlarged lymphadenopathy.
--- NOTE | 2021-01-10 19:52 | CT ---
EXAMINATION TYPE: CT neck chest w con DATE OF EXAM: 01/08/2021 COMPARISON: None HISTORY: enlarged lymph nodes, abnormal labs CT DLP: 2318 mGycm, Automated exposure control for dose reduction was used. CONTRAST: Performed injected with 100 mL of Isovue 300. TECHNIQUE: Axial images were obtained at 5 mm thick sections. Reconstructed images are reviewed on [employer] computer in the coronal plane. FINDINGS: Portion of the thyroid visualized is normal. Minimal infiltrate may be in the right infrahilar region. Lungs otherwise appear clear.. No enlarged mediastinal or hilar adenopathy is evident. The ascending aorta diameter at the level o f the main pulmonary artery is 4.3 cm. The main pulmonary artery diameter at the bifurcation is 3.[address] sections are obtained through the upper abdomen. Abdomen is essentially unremarkable. IMPRESSIONS: 1. Ascending thoracic aortic aneurysm measuring 4.3 cm. 2. Small right infrahilar infiltrate. 3. No suspicious hilar or mediastinal lymph nodes. EXAMINATION TYPE: CT neck chest w con DATE OF EXAM: 01/08/2021 COMPARISON: None HISTORY: enlarged lymph nodes, abnormal labs CT DLP: 2318 mGycm CONTRAST: Patient injected with 100 mL of Isovue 300. TECHNIQUE: Axial images at 3 mm thick sections. Reconstructed images in the coronal plane and sagitt al plane are reviewed. FINDINGS: Limited CT sections are obtained the lung apices. The lung apices appear clear. CT neck: The torus tubarius and fossa of Rosenmuller are normal. Prepress Stripper spaces are normal. Para nasal sinuses and mastoid air cells are clear. Scattered small lymph nodes are in the submandibular regions. Parapharyngeal small lymph nodes are pr esent. No suspicious enlarged lymph nodes are evident. Parotid glands appear normal and symmetrical. Submandibular glands, are normal. Parapharyngeal spac es are normal. No suspicious adenopathy is evident. The hypopharynx appears within normal limits. Vocal cord level appear symmetrical. Thyroid as visualized is normal. Osseous structures are normal. IMPRESSIONS: 1. Scattered small lymph nodes present bilaterally.
== END | disposition home or self-care (01) ==
LOC: RADCTMAIN 14:43
PROVIDERS: ATTEND Internal Medicine Hematology & Oncology
DX: I71.2 Thoracic aortic aneurysm, without rupture (principal); R91.8 Other nonspecific abnormal finding of lung field; R59.0 Localized enlarged lymph nodes
CPT/HCPCS: 70491; 71260; 74177; Q9967

== ENCOUNTER 2021-01-30 10:13 | Day surgery (SDC) | payer MEDICAID ==
[2021-01-25 16:26] VITALS: BMI 46.2
[~2021-01-30 10:13] MED LIST changes: -ALLOPURINOL 300 MG TAB PO SCH; -FUROSEMIDE 40 MG TAB PO SCH; -LEVOTHYROXINE SODIUM 350 MCG PO SCH; -LIDOCAINE 1% INJ 10MG/ML (20 ML MDV) ONE; -MINOXIDIL 10 MG TAB PO SCH; -NON-FORMULARY DRUG (Enalapril 20 MG) PO SCH; -PROPOFOL 10 MG/ML 20 ML VIAL IV ONE; -RIVAROXABAN 20 MG TAB PO SCH; -SODIUM CHLORIDE 0.9% 1,000 ML IV SCH; -SODIUM CHLORIDE 0.9% 500 ML 500 ML IV ONE; -SPIRONOLACTONE-HCTZ 25-25MG 1 EACH TAB PO SCH; -TAMSULOSIN 0.4 MG CAP.ER.24H PO SCH
[2021-01-30 10:43] VITALS: TEMP 97.3
[2021-01-30] MEDS ORDERED: LIDOCAINE 1% (10MG/ML) FOR IV START INTRADERMA ONE (10:45)
[2021-01-30] MEDS ORDERED: LIDOCAINE 1% INJ 10MG/ML (20 ML MDV) ONE (11:12)
[2021-01-30] MEDS ORDERED: KETAMINE 10 MG/ML 20 ML VIAL ONE (11:12)
[2021-01-30] MEDS ORDERED: PROPOFOL 10 MG/ML 20 ML VIAL IV ONE (11:12)
--- NOTE | 2021-01-30 11:18 | P.GSHP ---
History of Present Illness H&P Date: 01/30/21 Chief Complaint: GERD, colon cancer screening 65-year-old male here today for upper and lower endoscopy. Patient was diagnosed recently with B12 deficiency. Patient's last colonoscopy 7 years ago. Small polyp that was hyperplastic at that time. No bowel related complaints. No family history of colon cancer. Past Medical History Past Medical History: Atrial Fibrillation, Hyperlipidemia, Hypertension, Osteoarthritis (OA), Sleep Apnea/CPAP/BIPAP, Thyroid Disorder Additional Past Medical History / Comment(s): C PAP MACHINE , FATTY LIVER, LOW VIT B-12 History of Any Multi-Drug Resistant Organisms: None Reported Past Surgical History: Cholecystectomy, Orthopedic Surgery Additional Past Surgical History / Comment(s): colonoscopy, L elbow surgery Past Anesthesia/Blood Transfusion Reactions: No Reported Reaction Additional Past Anesthesia/Blood Transfusion Reaction / Comment(s): "i've never had a blood transfusion" Smoking Status: Never smoker - Past Family History Mother Family Medical History: AFIB, Cancer Father Additional Family Medical History / Comment(s): ALS Medications and Allergies Home Medications Medication Instructions Recorded Confirmed Type Allopurinol [Zyloprim] 300 mg PO DAILY 05/12/17 01/25/21 History Furosemide [Lasix] 40 mg PO DAILY 05/12/17 01/25/21 History Levothyroxine Sodium [Levo-T] 300 mcg PO QAM 05/12/17 01/25/21 History Spironolactone-Hctz 25-25Mg 1 tab PO DAILY 05/12/17 01/25/21 History [Aldactazide 25-25 MG] Tamsulosin HCl [Flomax] 0.4 mg PO DAILY 04/20/18 01/25/21 History Enalapril [Vasotec] 20 mg PO BID 04/22/18 01/25/21 History minoxidiL 10 mg PO DAILY 04/22/18 01/25/21 History Rivaroxaban [Xarelto] 20 mg PO DAILY 06/15/18 01/25/21 History Levothyroxine Sodium [Synthroid] 50 mcg PO DAILY 11/13/18 01/25/21 History atenoloL 100 mg PO DAILY 11/13/18 01/25/21 History Misoprostol [Cytotec] 100 mcg PO BID 01/25/21 01/25/21 History Allergies Allergy/AdvReac Type Severity Reaction Status Date / Time No Known Allergies Allergy Verified 01/30/21 10:39 Surgical - Exam Vital Signs Temp Pulse Resp BP Pulse Ox 97.3 F L 71 16 168/100 94 L 01/30/21 10:41 01/30/21 10:41 01/30/21 10:41 01/30/21 10:41 01/30/21 10:41 Physical exam: General: Well-developed, well-nourished HEENT: Normocephalic, sclerae nonicteric Abdomen: Nontender, nondistended Extremities: No edema Neuro: Alert and oriented Assessment and Plan (1) Colon cancer screening Narrative/Plan: Will proceed with colonoscopy at this time Current Visit: Yes Status: Acute Code(s): Z12.11 - ENCOUNTER FOR SCREENING FOR MALIGNANT NEOPLASM OF COLON SNOMED Code(s): 367701641
--- NOTE | 2021-01-30 11:43 | P.PCN ---
Date of Procedure: 01/30/21 Procedure(s) Performed: PREOPERATIVE DIAGNOSIS: GERD, screening POSTOPERATIVE DIAGNOSIS: Diffuse gastritis, PROCEDURE: 1. EGD with biopsy 2. Colonoscopy ANESTHESIA: MAC SURGEON: Shaggy Acosta M.D. SPECIMENS: Antrum, body ENDOSCOPIC PROCEDURE: The patient was on the endoscopy table in the left decubitus position. The Olympus gastroscope was inserted into the oropharynx and passed under direct visualization to the region of the third portion of the duodenum. From that point the scope was slowly withdrawn inspecting all surfaces carefully. There were no neoplastic inflammatory or polypoid lesions throughout the duodenum. The pylorus was widely patent. The stomach was carefully inspected. There was use gastritis present. A biopsy of the antrum took place to rule out H. pylori. A biopsy of the gastritis in the body of the stomach also took place. Retroflexion revealed a normal hiatus. The esophagus was then carefully examined. There were no neoplastic inflammatory or polypoid lesions throughout the visualized esophagus. The patient was kept on the endoscopy table in the left decubitus position. The Olympus colonoscope was inserted into the anus and passed under direct visualization to the region of the hepatic flexure. We were unable to advance more proximally then mass. The patient had a somewhat tortuous colon but he was a very large man and we used of the entire scope to get to that section. Multiple attempts were made to go more proximal which were not successful. Transverse descending sigmoid and rectum appeared normal. There was no visible diverticulosis. Digital rectal examination was normal. The patient was taken to the recovery room in stable condition per anesthesia guidelines. RECOMMENDATIONS: Await biopsy results. Will discuss options of barium enema to evaluate the proximal colon with patient however given the patient's abdominal girth I suspect the study would be limited in its value.
[2021-01-30 12:14] VITALS: BP 144/78; PULSE 78; RESP 18
== END 2021-01-30 12:53 | disposition home or self-care (01) ==
LOC: ORWHC2ENDO 10:13
PROVIDERS: ATTEND Surgery
DX: Z12.11 Encounter for screening for malignant neoplasm of colon (principal); K29.50 Unspecified chronic gastritis without bleeding; E53.8 Deficiency of other specified B group vitamins; K21.9 Gastro-esophageal reflux disease without esophagitis; M19.90 Unspecified osteoarthritis, unspecified site; I10 Essential (primary) hypertension; E78.5 Hyperlipidemia, unspecified; K76.0 Fatty (change of) liver, not elsewhere classified; Z80.9 Family history of malignant neoplasm, unspecified; Z86.010 Personal history of colon polyps; I48.91 Unspecified atrial fibrillation; G47.33 Obstructive sleep apnea (adult) (pediatric); E07.9 Disorder of thyroid, unspecified; E66.01 Morbid (severe) obesity due to excess calories
CPT/HCPCS: 43239; 88305; 88342; G0121; J2001; J2704

== ENCOUNTER → 2021-04-30 | Outpatient (CLI) | payer MEDICAID ==
[2021-04-30 17:55] LABS: Basophils # (A) 0.01 X 10*3/uL (0.00-0.10); Basophils % (A) 0.2 %; Eosinophils # (A) 0.07 X 10*3/uL (0.04-0.35); Eosinophils % (A) 1.6 %; HCT 44.9 % (39.6-50.0); HGB 14.1 g/dL (13.0-17.0); Lymphocytes # (A) 1.41 X 10*3/uL (0.90-5.00); MCH 26.8 pg (27.0-32.0); MCHC 31.4 g/dL (32.0-37.0); MCV 85.2 fL (80.0-97.0); Mean Platelet Volume 10.5 fL (9.5-12.2); Monocytes % (A) 11.4 %; Neutrophils # (A) 2.39 X 10*3/uL (1.80-7.70); Neutrophils % (A) 54.3 %; Platelet Count 153 X 10*3/uL (140-440); RBC 5.27 X 10*6/uL (4.40-5.60); RDW 15.7 % (11.5-14.5)
[2021-04-30 21:38] LABS: Vitamin B12 <150.0 pg/mL (200.0-944.0)
[2021-05-02 08:44] LABS: Methylmalonic Acid 0.35 umol/L (<0.40)
== END | disposition home or self-care (01) ==
LOC: LABWHC1 14:21
PROVIDERS: ATTEND Internal Medicine Hematology & Oncology
DX: D51.9 Vitamin B12 deficiency anemia, unspecified (principal); D64.89 Other specified anemias; D61.818 Other pancytopenia; R59.0 Localized enlarged lymph nodes
CPT/HCPCS: 36415; 82607; 82746; 83516; 83921; 85025

== ENCOUNTER → 2021-08-02 | Outpatient (CLI) | payer MEDICAID ==
[2021-08-03 01:10] LABS: African American GFR (CKD) 85.5 (60.0-200.0); Anion Gap 13.6 mmol/L (10.00-18.00); Blood Urea Nitrogen 15.4 mg/dL (9.0-27.0); Carbon Dioxide 26.1 mmol/L (20.0-27.5); Non-African American GFR(CKD) 73.8 (60.0-200.0); Potassium 4.4 mmol/L (3.5-5.5)
== END | disposition home or self-care (01) ==
LOC: LABWHC1 14:12
PROVIDERS: ATTEND Internal Medicine Cardiovascular Disease
DX: I48.11 Longstanding persistent atrial fibrillation (principal)
CPT/HCPCS: 36415; 80051; 82565; 83880; 84520

== ENCOUNTER → 2022-01-01 | Outpatient (CLI) | payer MEDICAID ==
[2022-01-01 18:10] LABS: Basophils # (A) 0.04 X 10*3/uL (0.00-0.10); Basophils % (A) 0.6 %; Eosinophils # (A) 0.18 X 10*3/uL (0.04-0.35); Eosinophils % (A) 2.6 %; HCT 50.4 % (39.6-50.0); Immature Grans, Automated 0.4 %; Lymphocytes # (A) 1.78 X 10*3/uL (0.90-5.00); Lymphocytes % (A) 26.2 %; MCHC 31.7 g/dL (32.0-37.0); MCV 88.3 fL (80.0-97.0); Mean Platelet Volume 10.2 fL (9.5-12.2); Monocytes # (A) 0.77 X 10*3/uL (0.20-1.00); Monocytes % (A) 11.3 %; NRBC Per 100 WBC 0 /100 WBCS (0.0-0.0); Neutrophils % (A) 58.9 %; Platelet Count 168 X 10*3/uL (140-440); RBC 5.71 X 10*6/uL (4.40-5.60); RDW 14.5 % (11.5-14.5)
== END | disposition home or self-care (01) ==
LOC: LABWHC1 13:53
PROVIDERS: ATTEND Internal Medicine Hematology & Oncology
DX: D51.0 Vitamin B12 deficiency anemia due to intrinsic factor deficiency (principal); D51.9 Vitamin B12 deficiency anemia, unspecified; D64.89 Other specified anemias; D61.818 Other pancytopenia
CPT/HCPCS: 36415; 82607; 82746; 83921; 85025

== ENCOUNTER → 2022-05-07 | Outpatient (CLI) | payer MEDICAID | END | disposition home or self-care (01) | LOC: LABWHC1 13:40 | PROVIDERS: ATTEND Internal Medicine Hematology & Oncology | DX: D51.0 Vitamin B12 deficiency anemia due to intrinsic factor deficiency (principal); D64.89 Other specified anemias; D61.818 Other pancytopenia | CPT/HCPCS: 36415; 82607; 82746; 83921 ==

== ENCOUNTER 2024-09-13 01:47 | Emergency (ER) | payer MEDICARE ==
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
--- NOTE | 2024-09-13 03:09 | CT ---
EXAM: CT Right Lower Extremity Without Intravenous Contrast CLINICAL HISTORY: ITS.REASON CT Reason: medial thigh hematoma, injury, on thinners TECHNIQUE: Axial computed tomography images of the right lower extremity without intravenous contrast. CTDI is 12.7 mGy and DLP is 1540.6 mGy-cm. This CT exam was performed using one or more of the following dose reduction techniques: automated exposure control, adjustment of the mA and/or kV according to patient size, and/or use of iterative reconstruction technique. COMPARISON: No relevant prior studies available. FINDINGS: Bones/joints: No acute fracture. No dislocation. Soft tissues: 12.5 cm hematoma medial thigh. IMPRESSION: 12.5 cm hematoma medial thigh.
[2024-09-13 03:38] VITALS: BP 125/82; PULSE 70; RESP 17; TEMP 99.2
== END 2024-09-13 03:38 | disposition home or self-care (01) ==
LOC: EC 01:47
DX: S70.11XA Contusion of right thigh, initial encounter (principal); V86.56XA Driver of dirt bike or motor/cross bike injured in nontraffic accident, initial encounter; Y93.55 Activity, bike riding
CPT/HCPCS: 99283

== ENCOUNTER → 2024-10-18 | Outpatient (CLI) | payer MEDICARE ==
[2024-10-18 17:07] LABS: Blood Urea Nitrogen 15.3 mg/dL (9.0-27.0); Carbon Dioxide 26.9 mmol/L (21.6-31.8); Chloride 100 mmol/L (96-109); Glucose 119 mg/dL (70-110); Potassium 4.1 mmol/L (3.5-5.5); Sodium 138 mmol/L (135-145)
[2024-10-18 18:04] LABS: NT-Pro-B-Type Natriuretic Pept 601 pg/mL (0-125)
== END | disposition home or self-care (01) ==
LOC: LABWHC1 10:59
PROVIDERS: ATTEND Internal Medicine Cardiovascular Disease
DX: I50.32 Chronic diastolic (congestive) heart failure (principal)
CPT/HCPCS: 36415; 80048; 83880